=== PATIENT | male | born 1940 | race Caucasian/White ===

== ENCOUNTER → 2016-09-17 | Outpatient (CLI) | payer OTHER ==
[~2016-09-17] MED LIST: ASPCH81X PO; ATEN50TA8 PO; CMD2 PO; EZET10TA63 PO; LISI-729 PO; NTRGSL/4 UT; PRAV80TA2 PO
[2016-09-17 11:46] LABS: PROTHROMBIN TIME (PATIENT) > 100.0 SECONDS (9.0-12.0)
[2016-09-17 11:48] LABS: INR > 8.0 (0.9-1.1)
== END ==
LOC: C.LABSPEC 10:43
PROVIDERS: ATTEND Physician Assistant Medical
DX: Z79.01 Long term (current) use of anticoagulants (principal); Z51.81 Encounter for therapeutic drug level monitoring

== ENCOUNTER → 2016-11-03 | Outpatient (CLI) | payer OTHER ==
[2016-11-03 15:02] LABS: BASO % 0.2 %; BASO ABS # 0.01 K/uL (0-0.2); COMPLETE YES; EOS % 0.5 %; HEMATOCRIT 36.1 % (42-52); IG% 0.2 %; LYMPH % 10.3 %; LYMPH ABS # 0.63 K/uL (1.2-3.4); MEAN CELL VOLUME 99.2 fL (80-100); MEAN CORPUSCULAR HEMOGLOBIN 33.8 pg (25-34); MEAN CORPUSCULAR HGB CONC 34.1 g/dl (32-36); MEAN PLATELET VOLUME 10.1 fL (7.4-10.4); MONO % 8.2 %; NEUT % 80.6 %; PLATELET COUNT 175 K/uL (130-400); RED BLOOD COUNT 3.64 M/uL (4.7-6.1)
[2016-11-03 15:14] LABS: BLOOD UREA NITROGEN 28 mg/dl (7-18); BUN/CREATININE RATIO 28.8 (10-20); CALCIUM 7.9 mg/dl (8.5-10.1); CARBON DIOXIDE 29 mmol/L (21-32); CHLORIDE 108 mmol/L (98-107); CREATININE 0.96 mg/dl (0.60-1.40); GLUCOSE 116 mg/dl (70-99); POTASSIUM 5.3 mmol/L (3.5-5.1); SODIUM 141 mmol/L (136-145)
[2016-11-03 15:19] LABS: PROTHROMBIN TIME (PATIENT) > 100.0 SECONDS (9.0-12.0)
[2016-11-03 15:28] LABS: INR > 8.0 (0.9-1.1)
== END ==
LOC: C.LABSPEC 14:14
DX: R82.5 Elevated urine levels of drugs, medicaments and biological substances (principal); K92.1 Melena

== ENCOUNTER 2019-07-20 21:14 | Inpatient (IN) ==
--- NOTE | 2019-07-20 22:01 | XRay Report ---
SINGLE VIEW CHEST CLINICAL HISTORY: Sepsis. FINDINGS: An AP, portable, upright chest radiograph is compared to study dated 10/08/2018. The examina tion is degraded by portable technique and apical lordotic positioning. The heart is enlarged noting atherosclerotic calcification of the thoracic ureter. There is pulmonary vascular congestion. There a re small pleural effusions with bibasilar atelectasis. No pneumothorax is seen. The skeletal structur es are osteopenic. The bony thorax is grossly intact. IMPRESSION: Cardiomegaly with evidence of congestive failure. ACT 112: Negative or not required by law. Electronically signed by: Yan Valenzuela M.D. 07/20/2019 10:00 PM
[2019-07-20 22:07] LABS: Eosinophils # (auto) 0.01 K/uL (0-0.5); Eosinophils % (auto) 0.1 %; Hematocrit (blood only) 47.7 % (42-52); Hemoglobin 16.9 g/dL (14.0-18.0); Immature Granulocytes # (auto) 0.02 K/uL (0.00-0.02); Immature Granulocytes % (auto) 0.3 %; Lymphocytes # (auto) 0.36 K/uL (1.2-3.4); Lymphocytes % (auto) 4.9 %; Mean Corpuscular Hemoglobin 33.4 pg (25-34); Mean Corpuscular Hgb Conc 35.4 g/dL (32-36); Mean Corpuscular Volume 94.3 fL (80-100); Mean Platelet Volume 9.9 fL (7.4-10.4); Monocytes % (auto) 1.3 %; Neutrophils # (auto) 6.92 K/uL (1.4-6.5); Neutrophils % (auto) 93.4 %; Platelet Count 136 K/uL (130-400); RDW Coefficient of Variation 14.5 % (11.5-14.5); RDW Standard Deviation 49.3 fL (36.4-46.3); Red Blood Count 5.06 M/uL (4.7-6.1); White Blood Count 7.41 K/uL (4.8-10.8)
[2019-07-20 22:24] LABS: Alanine Aminotransferase 26 U/L (12-78); Aspartate Aminotransferase 21 U/L (15-37); BUN Creatinine Ratio 14.1 (10-20); Blood Urea Nitrogen 20 mg/dl (7-18); Calcium 8.7 mg/dl (8.5-10.1); Carbon Dioxide 27 mmol/L (21-32); Chloride 107 mmol/L (98-107); Creatinine Clr Calc Pharmacy 58.6 ml/min; Est GFR (African American) 54.3; Est GFR (Non-African American) 46.8; Glucose 132 mg/dl (70-99); Magnesium 2.1 mg/dl (1.8-2.4); Potassium 3.9 mmol/L (3.5-5.1); Sodium 141 mmol/L (136-145)
--- NOTE | 2019-07-20 22:24 | Emergency Department Note ---
Entered by Sonja Morales acting as a scribe for Frederick Booker DO History of Present Illness General Chief complaint: Leg Injury/Pain Time Seen by Provider: 07/20/19 21:32 Source: patient History of Present Illness Provider complaint: leg swelling Onset (ago): minute(s) (prior to arrival) Location: lower extremity and right Pain Consistency: + other (worsening) Quality: + other (leg swelling) Associated symptoms: + other (Negative pain; ) The patient is a 78 year old male who presents to the Emergency Room with complaints of leg pain that was observed prior to arrival. The patient's report claims that the patient has been experiencing right leg swelling and pain. The patient confirms that his right leg is more swollen than usual. The patient reports having blood clots in both of his legs. The patient denies any pain at this time. HPI is limited secondary to poor historian account. Home Medications Home Medications Medication Instructions Recorded Confirmed Type aripiprazole 5 mg PO DAILY 10/08/18 07/20/19 History aspirin [Aspirin Low Dose] 81 mg PO DAILY 10/08/18 07/20/19 History ezetimibe 10 mg PO DAILY 10/08/18 07/20/19 History hydroxyzine pamoate [Vistaril] 25 mg PO DAILY 10/08/18 07/20/19 History hydroxyzine pamoate [Vistaril] 50 mg PO HS 10/08/18 07/20/19 History memantine 10 mg PO BID 10/08/18 07/20/19 History nitroglycerin 0.4 mg SUBLINGUAL DIRECTED PRN 10/08/18 07/20/19 History pravastatin 80 mg PO HS 10/08/18 07/20/19 History ramelteon [Rozerem] 8 mg PO HS 10/08/18 07/20/19 History warfarin 2 mg PO HS 10/08/18 07/20/19 History acetaminophen 650 mg PO TID 07/20/19 07/20/19 History atenolol 12.5 mg PO DAILY 07/20/19 07/20/19 History docusate sodium 100 mg PO DAILY 07/20/19 07/20/19 History magnesium hydroxide [Milk of 30 ml PO DAILY PRN 07/20/19 07/20/19 History Magnesia] sodium chloride [[place] Allergy and 2.65 % INTRANASAL BID PRN 07/20/19 07/20/19 History Sinus] sulfamethoxazole-trimethoprim 1 tab PO BID 07/20/19 07/20/19 History [Bactrim DS] Allergies Allergy/AdvReac Type Severity Reaction Status Date / Time OC SPRAY AdvReac Unknown Unknown Uncoded 07/20/19 23:37 Past Med/Surg History Medical History 1st degree AV block Alzheimer disease Anemia Anxiety Atherosclerotic heart disease CORONARY ARTERY Atrial fibrillation DVT, lower extremity (Resolved) Hyperlipidemia Hypertension Intellectual disability Neurocognitive disorder Osteoarthritis Stented coronary artery (Chronic 04/17/11) Supratherapeutic INR (Acute) Transient ischemic attack (TIA) Surgical History History of cataract surgery Family History Other Family history non-contributory Social History Preferred Language: Singaporean Communication Ability: Impaired Compensation Director Required: No Beliefs That Will Affect Care: None marital status: Current Living Situation: Other Current Living Situation Comment: [facility] Feels Safe at Home: Yes Smoking Status: Unknown if ever smoked Hx Alcohol Use: No Hx Substance Use: No Physical Exam Vital Signs Vital Signs - 24 hr 07/20/19 21:17 07/20/19 21:30 07/20/19 21:59 Temperature 38.3 C H Temperature Source Oral Pulse Rate 112 H 109 H Pulse Rate [Apical] Pulse Rate from SpO2 Sensor 110 H Respiratory Rate 22 39 H Respiratory Effort / Characteristics Non-Labored Spontaneous Respiratory Depth Normal Respiratory Pattern Regular Blood Pressure 154/61 H 173/84 H Blood Pressure [Right Arm] Blood Pressure Mean 92 129 Blood Pressure Mean [Right Arm] Pulse Oximetry 94 92 94 Oxygen Delivery Method Room Air Room Air Sepsis Recent Fever Within 48 Hours Yes Sepsis New/Unexplained Change in Mental Status No Sepsis Action Taken by Nursing Physician Notified 07/20/19 22:01 07/20/19 22:15 07/20/19 22:31 Temperature Temperature Source Pulse Rate 119 H 123 H 114 H Pulse Rate [Apical] Pulse Rate from SpO2 Sensor 119 H 125 H 114 H Respiratory Rate 38 H 41 H 34 H Respiratory Effort / Characteristics Respiratory Depth Respiratory Pattern Blood Pressure 167/78 H 157/77 H 140/66 Blood Pressure [Right Arm] Blood Pressure Mean 110 100 83 Blood Pressure Mean [Right Arm] Pulse Oximetry 93 92 92 Oxygen Delivery Method Room Air Sepsis Recent Fever Within 48 Hours Sepsis New/Unexplained Change in Mental Status Sepsis Action Taken by Nursing 07/20/19 23:00 07/21/19 00:18 Temperature Temperature Source Pulse Rate Pulse Rate [Apical] 105 H 88 Pulse Rate from SpO2 Sensor Respiratory Rate 18 18 Respiratory Effort / Characteristics Respiratory Depth Respiratory Pattern Blood Pressure Blood Pressure [Right Arm] 122/70 99/60 L Blood Pressure Mean Blood Pressure Mean [Right Arm] 87 73 Pulse Oximetry 92 92 Oxygen Delivery Method Room Air Room Air Sepsis Recent Fever Within 48 Hours Sepsis New/Unexplained Change in Mental Status Sepsis Action Taken by Nursing GENERAL: The patient is awake and alert. He is somewhat anxious appearing. EYES: The conjunctivae are clear. The pupils are round and reactive. EARS, NOSE, MOUTH AND THROAT: The nose is without any evidence of any deformity. Mucous membranes are moist. Tongue is midline. NECK: The neck is nontender and supple. RESPIRATORY: Shallow respirations were noted. There were rales noted at the left base. CARDIOVASCULAR: Regular rate and rhythm noted there no murmurs rubs or gallops normal S1 normal S2. GASTROINTESTINAL: The abdomen is soft. Abdomen is nontender. MUSCULOSKELETAL/EXTREMITIES: There is no evidence of gross deformity full range of motion is noted in the hips and shoulders. SKIN: Pedal edema was noted bilaterally. There was symmetric pulses in both feet. There is erythema in both lower extremities right greater than left. NEUROLOGIC: Patient is oriented to person place and situation. Strength was symmetric. Course Course 2133: Past medical records reviewed. The patient was evaluated in room A10. A complete history and physical exam was performed. 0030: I reassessed the patient who is resting. I talked to him about his further evaluation with a hospitalist. 0032: I reviewed the patient's case with Dr. Heller, [facility] Hospitalist. He will evaluate the patient for further management. Consultations Consultation #1: I reviewed the patient's case with Dr. Heller, [facility] Hospitalist. He will evaluate the patient for further management. Time: 00:32 Administered Medications Sodium Chloride (Nss 1000ml) 1,000 mls @ 125 mls/hr IV .Q8H PRISCA Stop: 08/20/19 02:00 Last Admin: 07/21/19 02:33 Dose: 125 mls/hr Documented by: [id number] Discontinued Medications Piperacillin Sod/Tazobactam Sod (Zosyn) 4.5 gm in 120 mls @ 240 mls/hr IV NOW ONE Stop: 07/20/19 22:59 Last Infusion: 07/20/19 23:16 Dose: 0 mls/hr Documented by: [id number] Admin: 07/20/19 22:46 Dose: 240 mls/hr Documented by: [id number] Ceftriaxone Sodium (Rocephin) 1,000 mg in 50 mls @ 100 mls/hr IV NOW STA Stop: 07/21/19 00:51 Last Infusion: 07/21/19 01:10 Dose: 0 mls/hr Documented by: [id number] Admin: 07/21/19 00:33 Dose: 100 mls/hr Documented by: [id number] Sodium Chloride (Nss 1000ml) 500 mls @ 999 mls/hr IV .Q31M ONE Stop: 07/21/19 00:54 Last Infusion: 07/21/19 01:09 Dose: 0 mls/hr Documented by: [id number] Admin: 07/21/19 00:33 Dose: 999 mls/hr Documented by: [id number] Ioversol (Optiray 320 125ml) 117 ml IV ONCE PRN PRN Reason: Interaction Checking Stop: 07/24/19 23:12 Last Admin: 07/20/19 23:14 Dose: 117 ml Documented by: [id number] Medical Decision Making Differential Diagnosis Differential diagnosis includes etiologies such as cellulitis, abscess, MRSA infection, DVT, necrotizing fasciitis, dermatitis, drug eruption, as well as others were entertained. Medical Records Attestation: I reviewed the patient's medical records. Home Medications Current Medication List: was personally reviewed by me Laboratory Data Attestation: I reviewed the patient's lab results. Result diagrams: 07/20/19 21:55 07/20/19 21:55 Lab Results 07/20/19 07/20/19 07/20/19 Range/Units 21:40 21:55 21:55 WBC 7.41 (4.8-10.8) K/uL RBC 5.06 (4.7-6.1) M/uL Hgb 16.9 (14.0-18.0) g/dL Hct 47.7 (42-52) % MCV 94.3 (80-100) fL MCH 33.4 (25-34) pg MCHC 35.4 (32-36) g/dL RDW Std Deviation 49.3 H (36.4-46.3) fL RDW Coeff of Tamara 14.5 (11.5-14.5) % Plt Count 136 (130-400) K/uL MPV 9.9 (7.4-10.4) fL Immature Gran % (Auto) 0.3 % Neut % (Auto) 93.4 % Lymph % (Auto) 4.9 % Baxter % (Auto) 1.3 % Eos % (Auto) 0.1 % Baso % (Auto) 0.0 % Immature Gran # (Auto) 0.02 (0.00-0.02) K/uL Neut # (Auto) 6.92 H (1.4-6.5) K/uL Lymph # (Auto) 0.36 L (1.2-3.4) K/uL Baxter # (Auto) 0.10 L (0.11-0.59) K/uL Eos # (Auto) 0.01 (0-0.5) K/uL Baso # (Auto) 0.00 (0-0.2) K/uL PT (9.0-12.0) Seconds INR (0.9-1.1) APTT (21.0-31.0) Seconds PTT Ratio Sodium (136-145) mmol/L Potassium (3.5-5.1) mmol/L Chloride (98-107) mmol/L Carbon Dioxide (21-32) mmol/L Anion Gap (3-11) BUN (7-18) mg/dl Creatinine (0.6-1.4) mg/dl Est Cr Clr Drug Dosing ml/min Est GFR ( Amer) Est GFR (Non-Af Amer) BUN/Creatinine Ratio (10-20) Glucose (70-99) mg/dl Lactate (0.4-2.0) mmol/L Calcium (8.5-10.1) mg/dl Magnesium (1.8-2.4) mg/dl Total Bilirubin (0.2-1) mg/dl AST (15-37) U/L ALT (12-78) U/L Alkaline Phosphatase (45-117) U/L Troponin I (0-0.045) ng/ml Total Protein (6.4-8.2) gm/dl Albumin (3.4-5.0) gm/dl Globulin (2.5-4.0) gm/dl Albumin/Globulin Ratio (0.9-2) Procalcitonin 0.17 (0-0.5) ng/ml Urine Color Urine Appearance (Clear) Urine pH (4.5-7.5) Ur Specific [place] (1.000-1.030) Urine Protein (Negative) Urine Glucose (UA) (Negative) Urine Ketones (Negative) Urine Blood (Negative) Urine Nitrite (Negative) Urine Bilirubin (Negative) Urine Urobilinogen (Negative) Ur Leukocyte Esterase (Negative) Urine WBC (Auto) (0-5) /hpf Urine RBC (Auto) (0-4) /hpf U Hyaline Cast (Auto) (0-5) /lpf U Epithel Cells (Auto) (0-5) /lpf Urine Bacteria (Auto) (Negative) Influenza Type A (PCR) Neg for Influ A (Neg) Influenza Type B (PCR) Neg for Influ B (Neg) 07/20/19 07/20/19 07/20/19 Range/Units 21:55 21:55 21:55 WBC (4.8-10.8) K/uL RBC (4.7-6.1) M/uL Hgb (14.0-18.0) g/dL Hct (42-52) % MCV (80-100) fL MCH (25-34) pg MCHC (32-36) g/dL RDW Std Deviation (36.4-46.3) fL RDW Coeff of Tamara (11.5-14.5) % Plt Count (130-400) K/uL MPV (7.4-10.4) fL Immature Gran % (Auto) % Neut % (Auto) % Lymph % (Auto) % [place] % (Auto) % Eos % (Auto) % Baso % (Auto) % Immature Gran # (Auto) (0.00-0.02) K/uL Neut # (Auto) (1.4-6.5) K/uL Lymph # (Auto) (1.2-3.4) K/uL [place] # (Auto) (0.11-0.59) K/uL Eos # (Auto) (0-0.5) K/uL Baso # (Auto) (0-0.2) K/uL PT 36.7 H (9.0-12.0) Seconds INR 3.9 H (0.9-1.1) APTT 38.4 H (21.0-31.0) Seconds PTT Ratio 1.4 Sodium 141 (136-145) mmol/L Potassium 3.9 (3.5-5.1) mmol/L Chloride 107 (98-107) mmol/L Carbon Dioxide 27 (21-32) mmol/L Anion Gap 6.0 (3-11) BUN 20 H (7-18) mg/dl Creatinine 1.44 H (0.6-1.4) mg/dl Est Cr Clr Drug Dosing 58.6 ml/min Est GFR ( Amer) 54.3 Est GFR (Non-Af Amer) 46.8 BUN/Creatinine Ratio 14.1 (10-20) Glucose 132 H (70-99) mg/dl Lactate 3.0 H* (0.4-2.0) mmol/L Calcium 8.7 (8.5-10.1) mg/dl Magnesium 2.1 (1.8-2.4) mg/dl Total Bilirubin 0.7 (0.2-1) mg/dl AST 21 (15-37) U/L ALT 26 (12-78) U/L Alkaline Phosphatase 87 (45-117) U/L Troponin I < 0.015 (0-0.045) ng/ml Total Protein 8.6 H (6.4-8.2) gm/dl Albumin 4.0 (3.4-5.0) gm/dl Globulin 4.6 H (2.5-4.0) gm/dl Albumin/Globulin Ratio 0.9 (0.9-2) Procalcitonin (0-0.5) ng/ml Urine Color Urine Appearance (Clear) Urine pH (4.5-7.5) Ur Specific [place] (1.000-1.030) Urine Protein (Negative) Urine Glucose (UA) (Negative) Urine Ketones (Negative) Urine Blood (Negative) Urine Nitrite (Negative) Urine Bilirubin (Negative) Urine Urobilinogen (Negative) Ur Leukocyte Esterase (Negative) Urine WBC (Auto) (0-5) /hpf Urine RBC (Auto) (0-4) /hpf U Hyaline Cast (Auto) (0-5) /lpf U Epithel Cells (Auto) (0-5) /lpf Urine Bacteria (Auto) (Negative) Influenza Type A (PCR) (Neg) Influenza Type B (PCR) (Neg) 07/20/19 07/20/19 Range/Units 22:26 23:46 WBC (4.8-10.8) K/uL RBC (4.7-6.1) M/uL Hgb (14.0-18.0) g/dL Hct (42-52) % MCV (80-100) fL MCH (25-34) pg MCHC (32-36) g/dL RDW Std Deviation (36.4-46.3) fL RDW Coeff of Tamara (11.5-14.5) % Plt Count (130-400) K/uL MPV (7.4-10.4) fL Immature Gran % (Auto) % Neut % (Auto) % Lymph % (Auto) % Baxter % (Auto) % Eos % (Auto) % Baso % (Auto) % Immature Gran # (Auto) (0.00-0.02) K/uL Neut # (Auto) (1.4-6.5) K/uL Lymph # (Auto) (1.2-3.4) K/uL [place] # (Auto) (0.11-0.59) K/uL Eos # (Auto) (0-0.5) K/uL Baso # (Auto) (0-0.2) K/uL PT (9.0-12.0) Seconds INR (0.9-1.1) APTT (21.0-31.0) Seconds PTT Ratio Sodium (136-145) mmol/L Potassium (3.5-5.1) mmol/L Chloride (98-107) mmol/L Carbon Dioxide (21-32) mmol/L Anion Gap (3-11) BUN (7-18) mg/dl Creatinine (0.6-1.4) mg/dl Est Cr Clr Drug Dosing ml/min Est GFR ( Amer) Est GFR (Non-Af Amer) BUN/Creatinine Ratio (10-20) Glucose (70-99) mg/dl Lactate 3.5 H* (0.4-2.0) mmol/L Calcium (8.5-10.1) mg/dl Magnesium (1.8-2.4) mg/dl Total Bilirubin (0.2-1) mg/dl AST (15-37) U/L ALT (12-78) U/L Alkaline Phosphatase (45-117) U/L Troponin I (0-0.045) ng/ml Total Protein (6.4-8.2) gm/dl Albumin (3.4-5.0) gm/dl Globulin (2.5-4.0) gm/dl Albumin/Globulin Ratio (0.9-2) Procalcitonin (0-0.5) ng/ml Urine Color Yellow Urine Appearance Clear (Clear) Urine pH 6.5 (4.5-7.5) Ur Specific [place] 1.011 (1.000-1.030) Urine Protein Negative (Negative) Urine Glucose (UA) Negative (Negative) Urine Ketones Negative (Negative) Urine Blood Trace H (Negative) Urine Nitrite Negative (Negative) Urine Bilirubin Negative (Negative) Urine Urobilinogen Negative (Negative) Ur Leukocyte Esterase Negative (Negative) Urine WBC (Auto) 0 (0-5) /hpf Urine RBC (Auto) 0-4 (0-4) /hpf U Hyaline Cast (Auto) 0 (0-5) /lpf U Epithel Cells (Auto) 0-5 (0-5) /lpf Urine Bacteria (Auto) Negative (Negative) Influenza Type A (PCR) (Neg) Influenza Type B (PCR) (Neg) Imaging Data Radiologist's Impression: CT of the chest was obtained in the emergency department. The report was reviewed. Preliminary Findings Only See Final Report For Complete Findings CTA CHEST: Thoracic inlet, bilateral axilla are unremarkable. Negative for any significant mediastinal hilar or subcarinal lymphadenopathy. Small hiatal hernia. Cirrhotic appearance to the liver. Heart and pericardium are unremarkable. Mild calcification at the aortic root and atherosclerotic calcifications in the aortic arch. Mild plaque ulceration noted involving the descending thoracic aorta. Caliber of the aorta and pulmonary arteries are normal. Negative for any filling defects. Stent or calcification at the origin of the left subclavian artery. Lungs: Mild bilateral basilar atelectasis. Bones: Old left posterior lower rib fracture. Impression: 1. No acute chest findings. 2. Cirrhotic liver. 3. Atherosclerotic disease with some mild plaque ulceration involving the descending thoracic aorta. Radiologist: Vinicio Cunningham MD Study ready at 23:25 and initial results transmitted at 00:19 ECG Data Attestation: I personally reviewed and interpreted this ECG as follows: Indication: + altered mental status Rate (beats per minute): 108 Rhythm: + sinus tachycardia ECG ST segments: + ST depression ECG Findings: + Other (No ectopy; Increased rate) Comparison ECG Date: from (10/08/2018) Change: no significant change Blood Pressure Blood Pressure Findings: Normal blood pressure MDM Narrative The patient is a 78-year-old male who presented to the emergency department from the [place] [facility] for an evaluation of fever and leg swelling. The patient also had some difficulty breathing. The patient appears to have an exam consistent with cellulitis. CT of the chest did not reveal any signs of pulmonary venous thromboembolic disease. I discussed the patient's laboratory and radiographic studies with him as well as the guards. The patient at this time does appear to have significant cellulitis of the right lower extremity. He was started on antibiotics. I discussed his case with the on-call [facility] hospitalist group. They have agreed to evaluate the patient in the emergency department for further management and disposition. Impression & Plan Cellulitis of right lower extremity, Fever, Hypertension Discharge Plan Visit Data *Final* Discharge Date/Time: 07/21/19 01:33 Chief Complaint: Leg Injury/Pain ED Provider: Frederick Booker Discharge Problem: Cellulitis of right lower extremity, Fever, Hypertension Patient Disposition: Admitted As Inpatient Discharge Instructions Interventions: ED Discharge Assessment Last Done: 07/21/19 01:33 Discharge Problem: Fever Qualifiers: Fever type: unspecified Qualified Code(s): R50.9 - Fever, unspecified Hypertension Qualifiers: Hypertension type: unspecified Qualified Code(s): I10 - Essential (primary) hypertension The scribe's documentation has been prepared under my direction and personally reviewed by me in its entirety. I confirm that the note above accurately reflects all work, treatment, procedures, and medical decision making performed by me.
[2019-07-20 22:27] LABS: Influenza A virus by PCR Neg for Influ A (Neg); Influenza B virus by PCR Neg for Influ B (Neg)
[2019-07-20 22:28] LABS: Partial Thromboplastin Ratio 1.4; Partial Thromboplastin Time 38.4 Seconds (21.0-31.0); Prothrombin Time 36.7 Seconds (9.0-12.0)
[2019-07-20 22:29] LABS: Albumin Globulin Ratio 0.9 (0.9-2); Alkaline Phosphatase 87 U/L (45-117); Bilirubin,Total 0.7 mg/dl (0.2-1); Globulin 4.6 gm/dl (2.5-4.0); Total Protein 8.6 gm/dl (6.4-8.2); Troponin I < 0.015 ng/ml (0-0.045)
[2019-07-20] MEDS ORDERED: PIPERACILLIN/TAZOBACTAM 4.5 GM/120 ML BAG IV ONE (22:30)
[2019-07-20] MEDS ORDERED: PIPERACILL/TAZOBAC CONSULT ACTIVE PRN (22:30)
[2019-07-20 22:48] LABS: INR 3.9 (0.9-1.1)
[2019-07-20 22:56] LABS: Appearance Urine Clear (Clear); Bacteria Urine Automated Negative (Negative); Bilirubin Urine Negative (Negative); Blood Urine Trace (Negative); Cast Urine Automated 0 /lpf (0-5); Color Urine Yellow; Epithelial Cell Urine Auto 0-5 /lpf (0-5); Glucose Urine UA Negative (Negative); Ketones Urine Negative (Negative); Leukocyte Esterase Urine Negative (Negative); Nitrite Urine Negative (Negative); Protein Urine Negative (Negative); RBC Urine Automated 0-4 /hpf (0-4); Specific Gravity Urine 1.011 (1.000-1.030); Urobilinogen Urine Negative (Negative); WBC Urine Automated 0 /hpf (0-5); pH Urine 6.5 (4.5-7.5)
[2019-07-20] MEDS ORDERED: OPTIRAY 320 125ml IV PRN (23:13)
[2019-07-21] MEDS ORDERED: cefTRIAXone SODIUM 1,000 MG/50 ML BAG IV STA (00:22)
[2019-07-21] MEDS ORDERED: SODIUM CHLORIDE 0.9% 1000ML 500 ML IV ONE (00:24)
--- NOTE | 2019-07-21 00:51 | History & Physical Report ---
Date of Service July 21, 2019 Assessment & Plan (1) Sepsis: Admit to PCU Evidenced by T 38.3, RR 41, Lactate level 3.5, source of infection cellulitis R lower leg. (2) Cellulitis of right lower extremity: IV Rocephin and IV Vanco MRSA nasal swab ordered. If negative can D/C Vanco. 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 Therefore will check INR in am and make decision tomorrow if to hold Warfarin (4) Alzheimer disease: Continue memantine. Continue behavioral meds aripiprazole and Vistaril. (5) Atherosclerotic heart disease: Continue aspirin, atenolol, and prn NTG (6) Hyperlipidemia: Continue ezetimibe and pravastatin. History of Present Illness 78 y/o male with dementia presented to the ED with complaint of right lower extremity pain and erythema. He awakens to verbal, but is not communicating or answering questions. The senior living guards report that the patient communicates intermittently as a baseline, however today he has been much less verbal. He did have temp elevation to 101F at the senior living today. Primary Care Provider: AUBREE Francis Allergies Allergy/AdvReac Type Severity Reaction Status Date / Time OC SPRAY AdvReac Unknown Unknown Uncoded 07/20/19 23:37 Home Medications Home Medications Medication Instructions Recorded Confirmed Type aripiprazole 5 mg PO DAILY 10/08/18 07/20/19 History aspirin [Aspirin Low Dose] 81 mg PO DAILY 10/08/18 07/20/19 History ezetimibe 10 mg PO DAILY 10/08/18 07/20/19 History hydroxyzine pamoate [Vistaril] 25 mg PO DAILY 10/08/18 07/20/19 History hydroxyzine pamoate [Vistaril] 50 mg PO HS 10/08/18 07/20/19 History memantine 10 mg PO BID 10/08/18 07/20/19 History nitroglycerin 0.4 mg SUBLINGUAL DIRECTED PRN 10/08/18 07/20/19 History pravastatin 80 mg PO HS 10/08/18 07/20/19 History ramelteon [Rozerem] 8 mg PO HS 10/08/18 07/20/19 History warfarin 2 mg PO HS 10/08/18 07/20/19 History acetaminophen 650 mg PO TID 07/20/19 07/20/19 History atenolol 12.5 mg PO DAILY 07/20/19 07/20/19 History docusate sodium 100 mg PO DAILY 07/20/19 07/20/19 History magnesium hydroxide [Milk of 30 ml PO DAILY PRN 07/20/19 07/20/19 History Magnesia] sodium chloride [[place] Allergy and 2.65 % INTRANASAL BID PRN 07/20/19 07/20/19 History Sinus] sulfamethoxazole-trimethoprim 1 tab PO BID 07/20/19 07/20/19 History [Bactrim DS] Past Med/Surg History Medical History 1st degree AV block Alzheimer disease Anemia Anxiety Atherosclerotic heart disease CORONARY ARTERY Atrial fibrillation DVT, lower extremity (Resolved) Hyperlipidemia Hypertension Intellectual disability Neurocognitive disorder Osteoarthritis Stented coronary artery (Chronic 04/17/11) Supratherapeutic INR (Acute) Transient ischemic attack (TIA) Surgical History History of cataract surgery Family History Other Family history non-contributory Social History Preferred Language: Filipino marital status: Current Living Situation: Other Current Living Situation Comment: Prisoner Feels Safe at Home: Yes Smoking Status: Former smoker Hx Alcohol Use: No Hx Substance Use: No Review of Systems Review of Systems: Unobtainable due to cognitive status Physical Exam Physical Exam: General- adult male awakens to verbal, makes eye contact, but not verbalizing. Head- atraumatic Eyes- PERRL, EOMI, anicteric ENT- oropharynx clear Neck- supple, no JVD, no adenopathy, no thyromegaly. Lungs- CTA b/l no R/R/W Heart- regular rhythm; no murmur, no gallop, no rub appreciated Abdomen- normal bowel sounds, soft, nontender. Extremities- Non-pitting edema right leg with erythema from ankle to mid lower leg, + tenderness to touch with heat production. Left leg shows mild edema and less erythema when compared to right. Neuro- alert, orientation not able to assess; PERRL, EOMI; Non-focal. die designer II-XII grossly intact. Skin- See ext. exam. No rashes. Results & Data Vital Signs (Past 12 Hours) Vital Signs Temp Pulse Pulse Resp BP BP Pulse Ox 07/21/19 00:18 88 18 99/60 L 92 07/20/19 23:00 105 H 18 122/70 92 07/20/19 22:31 114 H 34 H 140/66 92 07/20/19 22:15 123 H 41 H 157/77 H 92 07/20/19 22:01 119 H 38 H 167/78 H 93 07/20/19 21:59 94 07/20/19 21:30 109 H 39 H 173/84 H 92 07/20/19 21:17 38.3 C H 112 H 22 154/61 H 94 Laboratory Results Laboratory Results WBC 7.41 K/uL (4.8-10.8) 07/20/19 21:55 RBC 5.06 M/uL (4.7-6.1) 07/20/19 21:55 Hgb 16.9 g/dL (14.0-18.0) 07/20/19 21:55 Hct 47.7 % (42-52) 07/20/19 21:55 MCV 94.3 fL (80-100) 07/20/19 21:55 MCH 33.4 pg (25-34) 07/20/19 21:55 MCHC 35.4 g/dL (32-36) 07/20/19 21:55 RDW Std Deviation 49.3 fL (36.4-46.3) H 07/20/19 21:55 RDW Coeff of Tamara 14.5 % (11.5-14.5) 07/20/19 21:55 Plt Count 136 K/uL (130-400) 07/20/19 21:55 MPV 9.9 fL (7.4-10.4) 07/20/19 21:55 Immature Gran % (Auto) 0.3 % 07/20/19 21:55 Neut % (Auto) 93.4 % 07/20/19 21:55 Lymph % (Auto) 4.9 % 07/20/19 21:55 [place] % (Auto) 1.3 % 07/20/19 21:55 Eos % (Auto) 0.1 % 07/20/19 21:55 Baso % (Auto) 0.0 % 07/20/19 21:55 Immature Gran # (Auto) 0.02 K/uL (0.00-0.02) 07/20/19 21:55 Neut # (Auto) 6.92 K/uL (1.4-6.5) H 07/20/19 21:55 Lymph # (Auto) 0.36 K/uL (1.2-3.4) L 07/20/19 21:55 [place] # (Auto) 0.10 K/uL (0.11-0.59) L 07/20/19 21:55 Eos # (Auto) 0.01 K/uL (0-0.5) 07/20/19 21: Baso # (Auto) 0.00 K/uL (0-0.2) 07/20/19 21:55 PT 36.7 Seconds (9.0-12.0) H 07/20/19 21:55 INR 3.9 (0.9-1.1) H 07/20/19 21:55 APTT 38.4 Seconds (21.0-31.0) H 07/20/19 21:55 PTT Ratio 1.4 07/20/19 21:55 Sodium 141 mmol/L (136-145) 07/20/19 21:55 Potassium 3.9 mmol/L (3.5-5.1) 07/20/19 21:55 Chloride 107 mmol/L (98-107) 07/20/19 21:55 Carbon Dioxide 27 mmol/L (21-32) 07/20/19 21:55 Anion Gap 6.0 (3-11) 07/20/19 21:55 BUN 20 mg/dl (7-18) H 07/20/19 21:55 Creatinine 1.44 mg/dl (0.6-1.4) H 07/20/19 21:55 Est Cr Clr Drug Dosing 58.6 ml/min 07/20/19 21:55 Est GFR ( Amer) 54.3 07/20/19 21:55 Est GFR (Non-Af Amer) 46.8 07/20/19 21:55 BUN/Creatinine Ratio 14.1 (10-20) 07/20/19 21:55 Glucose 132 mg/dl (70-99) H 07/20/19 21:55 Lactate 3.5 mmol/L (0.4-2.0) H* 07/20/19 23:46 Calcium 8.7 mg/dl (8.5-10.1) 07/20/19 21:55 Magnesium 2.1 mg/dl (1.8-2.4) 07/20/19 21:55 Total Bilirubin 0.7 mg/dl (0.2-1) 07/20/19 21:55 AST 21 U/L (15-37) 07/20/19 21:55 ALT 26 U/L (12-78) 07/20/19 21:55 Alkaline Phosphatase 87 U/L (45-117) 07/20/19 21:55 Troponin I < 0.015 ng/ml (0-0.045) 07/20/19 21:55 Total Protein 8.6 gm/dl (6.4-8.2) H 07/20/19 21:55 Albumin 4.0 gm/dl (3.4-5.0) 07/20/19 21:55 Globulin 4.6 gm/dl (2.5-4.0) H 07/20/19 21:55 Albumin/Globulin Ratio 0.9 (0.9-2) 07/20/19 21:55 Procalcitonin 0.17 ng/ml (0-0.5) 07/20/19 21:55 Urine Color Yellow 07/20/19 22:26 Urine Appearance Clear (Clear) 07/20/19 22:26 Urine pH 6.5 (4.5-7.5) 07/20/19 22:26 Ur Specific Russell 1.011 (1.000-1.030) 07/20/19 22:26 Urine Protein Negative (Negative) 07/20/19 22: Urine Glucose (UA) Negative (Negative) 07/20/19 22: Urine Ketones Negative (Negative) 07/20/19 22:26 Urine Blood Trace (Negative) H 07/20/19 22:26 Urine Nitrite Negative (Negative) 07/20/19 22: Urine Bilirubin Negative (Negative) 07/20/19 22:26 Urine Urobilinogen Negative (Negative) 07/20/19 22:26 Ur Leukocyte Esterase Negative (Negative) 07/20/19 22:26 Urine WBC (Auto) 0 /hpf (0-5) 07/20/19 22:26 Urine RBC (Auto) 0-4 /hpf (0-4) 07/20/19 22:26 U Hyaline Cast (Auto) 0 /lpf (0-5) 07/20/19 22:26 U Epithel Cells (Auto) 0-5 /lpf (0-5) 07/20/19 22:26 Urine Bacteria (Auto) Negative (Negative) 07/20/19 22:26 Influenza Type A (PCR) Neg for Influ A (Neg) 07/20/19 21:40 Influenza Type B (PCR) Neg for Influ B (Neg) 07/20/19 21:40 Diagnostic Findings [place] [phone] XRay Report Patient: PHILIPPE HOOPER [id number] Date: 07/20/19 MR#: [id number]: AUBREE [facility] Acct ID:[id number]: JEFF Ivy Date: 1940[facility] Zip: [place] [address] Age: 78Location: ED Sex: M Room/Bed: Att Phy:Diagnosis: UNKNOWN Priyanka [facility] 07/20[facility] Fam Phy:Interpreting Phy: Yan Valenzuela MD Admit Phy: Ordering Phy: Frederick Booker DO cc: ~ SINGLE VIEW CHEST CLINICAL HISTORY: Sepsis. FINDINGS: An AP, portable, upright chest radiograph is compared to study dated 10/08/2018. The examination is degraded by portable technique and apical lordotic positioning. The heart is enlarged noting atherosclerotic calcification of the thoracic ureter. There is pulmonary vascular congestion. There are small pleural effusions with bibasilar atelectasis. No pneumothorax is seen. The skeletal structures are osteopenic. The bony thorax is grossly intact. IMPRESSION: Cardiomegaly with evidence of congestive failure. ACT 112: Negative or not required by law. Electronically signed by: Yan Valenzuela M.D. 07/20/2019 10:00 PM Dictated: [id number] Transcribed: 07/20/192158 Code Status & VTE Plan VTE Prophylaxis Plan VTE Prophylaxis will be ordered: Yes PG Care Time/CCT Total # of Minutes Spent Total Time Spent: 55 Total Time Spent with Patient: Total time spent is greater than 50% in coordination of care (as documented) at patient's floor/unit and/or counseling patient: Coding Level of Care Code 96097 Initial Inpt Care Lvl 3 Diagnoses Sepsis A41.9 Cellulitis of right lower extremity L03.115 DVT, lower extremity I82.409 Alzheimer disease G30.9; F02.80 Atherosclerotic heart disease I25.10 Hyperlipidemia E78.5
[2019-07-21] MEDS ORDERED: VANCOMYCIN CONSULT ACTIVE PRN (02:01)
[2019-07-21] MEDS ORDERED: NITROGLYCERIN SL 0.4 MG/TAB TAB SL PRN (02:01)
[2019-07-21] MEDS ORDERED: ONDANSETRON INJ 2 MG/ML 2 ML VIAL IV PRN (02:01)
[2019-07-21] MEDS ORDERED: PNEUMOCOCCAL POLYSACCHARIDES 25 MCG/0.5 ML VIAL/SYR IM ONE (02:14)
[2019-07-21] MEDS ORDERED: PNEUMOCOCCAL ADMINISTRATION CHARGE ONE (02:14)
[2019-07-21] MEDS ORDERED: VANCOMYCIN HCL 2,500 MG in SODIUM CHLORIDE 0.9% 500 ML IV ONE (02:30)
[2019-07-21] MEDS: SODIUM CHLORIDE 0.9% 1000ML 1,000 ML IV SCH ×3 (02:33→18:55)
[2019-07-21 05:50] LABS: Hematocrit (blood only) 43.4 % (42-52); Hemoglobin 14.9 g/dL (14.0-18.0); Mean Corpuscular Hemoglobin 32.3 pg (25-34); Mean Corpuscular Hgb Conc 34.3 g/dL (32-36); Mean Corpuscular Volume 93.9 fL (80-100); Mean Platelet Volume 9.7 fL (7.4-10.4); Platelet Count 110 K/uL (130-400); RDW Coefficient of Variation 14.6 % (11.5-14.5); RDW Standard Deviation 49.2 fL (36.4-46.3); Red Blood Count 4.62 M/uL (4.7-6.1)
[2019-07-21 06:12] LABS: Prothrombin Time 35.2 Seconds (9.0-12.0)
[2019-07-21 06:22] LABS: INR 3.8 (0.9-1.1)
[2019-07-21 06:27] LABS: Calcium 8.3 mg/dl (8.5-10.1); Creatinine Clr Calc Pharmacy 56.4 ml/min; Est GFR (African American) 53.4; Est GFR (Non-African American) 46.1; Potassium 3.3 mmol/L (3.5-5.1)
--- NOTE | 2019-07-21 07:33 | CT Scan Report ---
CT ANGIOGRAPHY OF THE CHEST, PULMONARY EMBOLUS PROTOCOL CLINICAL HISTORY: Chest pain. Evaluate for pulmonary embolus. COMPARISON STUDY: Chest radiograph October 08, 2018 and July 20, 2019. TECHNIQUE: Following IV administration of 117 mL of Optiray-320, helical axial images of the chest we re obtained utilizing the pulmonary embolus protocol. Maximal intensity projections and sagittal and coronal reformats were viewed on an independent 3D workstation. IV contrast was administered withou t complication. Automated exposure control was utilized for the study. A dose lowering technique wa s utilized adhering to the principles of ALARA. CT DOSE: 675.60 mGycm FINDINGS: No pulmonary emboli are identified although this exam is mildly compromised by respiratory motion. The heart is mildly enlarged. There is no pericardial effusion. There is moderate plaque wit hin the thoracic aorta without dissection. No pneumothorax is noted. There is no consolidation to sug gest pneumonia. Bilateral lower lobe opacities favor atelectasis. There are trace bilateral pleural e ffusions versus mild pleural thickening. Central airways are patent. No pneumomediastinum is present. There is no thoracic lymphadenopathy. Old bilateral rib fractures are noted. Liver is cirrhotic. IMPRESSION: 1. No pulmonary emboli identified although exam mildly compromised by respiratory motion. 2. No acute findings within the chest. 3. Trace bilateral pleural effusions versus pleural thickening. Bilateral lower lobe atelectasis with no consolidation to suggest pneumonia. 4. Cirrhosis. ACT 112: Negative or not required by law. Electronically signed by: Pramod Peraza M.D. 07/21/2019 7:32 AM
[2019-07-21] MEDS: ATENOLOL 25 MG TABLET PO SCH (07:59)
[2019-07-21] MEDS: ASPIRIN 81 MG ECTAB PO SCH (07:59)
[2019-07-21] MEDS: EZETIMIBE 10 MG TABLET PO SCH (07:59)
[2019-07-21] MEDS: MEMANTINE HCL 10 MG TAB PO SCH ×2 (07:59→19:57)
[2019-07-21] MEDS: PANTOprazole 40 MG TAB PO SCH (07:59)
[2019-07-21] MEDS: ARIPiprazole 5 MG TAB PO SCH (07:59)
[2019-07-21] MEDS: DOCUSATE SODIUM 100 MG CAP PO SCH (07:59)
[2019-07-21] MEDS ORDERED: POTASSIUM CHLORIDE 20 MEQ TABCR PO ONE (08:35)
--- NOTE | 2019-07-21 10:03 | Pharmacy Report ---
Pharmacy Abx Dose Short Note - Date of Service July 21, 2019 - Assessment & Plan Assessment * 78 year old M receiving ceftriaxone and vancomycin for treatment of sepsis 2nd RLE cellulitis * ?[facility] - no mention of CKD in H&P but SCr elevated to 1.44 mg/dL on admission and stable at 1.46 mg/dL ~7 hours later. Baseline from September 2018 ~1.1 mg/dL Vancomycin * Vancomcyin 22.5 mg/kg administered this AM * Will dose by level for now 2nd unclear renal function * Random level later today Plan * Random level ~12 hours after loading dose. * If therapeutic or subtherapeutic, anticipate ability to schedule vancomycin ongoing. * If supratherapeutic, will continue to dose via level. Pharmacy will continue to follow and will adjust dose/frequency as necessary. Thank you.
[2019-07-21] MEDS: ACETAMINOPHEN 325 MG TAB PO PRN (11:53)
--- NOTE | 2019-07-21 12:58 | Electrocardiogram Report ---
Test Reason : Blood Pressure : / mmHG Vent. Rate : 108 BPM Atrial Rate : 108 BPM P-R Int : 204 ms QRS Dur : 092 ms QT Int : 334 ms P-R-T Axes : 116 -75 054 degrees QTc Int : 447 ms Poor data quality, interpretation may be adversely affected Sinus tachycardia with 1st degree A-V block Incomplete right bundle branch block Left anterior fascicular block Nonspecific ST abnormality Abnormal ECG When compared with ECG of 08-OCT-2018 10:32, TX interval has decreased Vent. rate has increased BY 51 BPM Incomplete right bundle branch block is now Present Confirmed by Shaun Daly ([id number]) on 07/21/2019 12:57:59 PM Referred By: [facility] Confirmed By:Celestine Daly
[2019-07-21] MEDS ORDERED: WARFARIN SOD 2 MG TAB PO SCH (16:00)
[2019-07-21] MEDS ORDERED: VANCOMYCIN HCL 1,500 MG in SODIUM CHLORIDE 0.9% 500 ML IV SCH (16:30)
--- NOTE | 2019-07-21 18:02 | Hospitalist Progress Note ---
Date of Service July 21, 2019 Assessment & Plan (1) Sepsis: 78-year-old male was admitted on 21 July 2019 after complaining of right lower extremity pain and erythema. Sepsis, right lower extremity cellulitis: Febrile, tachypneic, elevated lactate to 3.5. Procalcitonin and influenza negative. CTA chest notes trace bilateral pleural effusions without evidence of pneumonia. Blood cultures pending. Given zosyn and vancomycin in ED. Nasal MRSA was negative, so stopped vanc. - Started on Rocephin as inpatient. Tylenol for pain control. Chronic lower extremity DVT: Is normally on Coumadin. Admit INR 3.9, this a.m. recheck 3.8. His Coumadin 2 mg daily has been held. Hypokalemia: Potassium down to 3.3. Replaced, monitor. Acute kidney injury: Admit creatinine 1.44. BUN 22. On normal saline at 125 mL an hour. Monitoring. Thrombocytopenia: Platelets down to 110. No known recent history of bleeding. Cirrhosis: Seen on CTA chest. There is no mention of this in the provided present medical record. Admission LFTs and ammonia level were normal. Abdomen seems a little distended but does not have a palpable fluid wave consistent with ascites. No reported abdominal pain. Do not believe he has SBP at present. Ongoing medical issues: - CAD: Continue home aspirin, atenolol, and as needed nitroglycerin. - ? history of afib: Mentioned in group home record without context. Admit EKG was sinus tachycardia with an incomplete RBBB and a LAFB. - Hyperlipidemia: Continue home ezetimibe and pravastatin. - Alzheimer's disease: Records mentioned that patient tends to communicate intermittently at baseline. Continue home amantadine. Also has aripiprazole, rozerem, and Vistaril. Code status: Conditional code. Requests ACLS, chest compressions, and defibrillation. Does not wish to have artificial ventilation or intubation. Diet: Heart healthy. DVT prophy: Coumadin as above. PT/OT: Deferred on admit. Disbo: Admitted to PCU telemetry. Currently incarcerated at [facility]. (2) Cellulitis of right lower extremity: (3) DVT, lower extremity: (4) Hypokalemia: (5) Acute kidney injury: (6) Thrombocytopenia: (7) Cirrhosis: (8) Coronary artery disease: (9) Hyperlipidemia: (10) Alzheimer disease: Supervising Physician Co-Signing Physician Notes Patient seen and examined with PGY-3 Dr. Garcia. Agree with history, exam findings, assessment and plan of care as outlined. In brief, Mr. Muller is a 78 year old male with history of dementia, CAD, chronic L LE DVT (AC with coumadin) admitted with sepsis secondary to right leg cellulitis. He is not able to give much history this morning, but does endorse some right leg pain. Afebrile. Right leg with erythema of the anterior randle wrapping around to the calf. Mildly tender. Warm. Abdomen is obese but not tense and no fluid wave. 1. Sepsis 2/2 cellulitis. MRSA neg. Continue ceftriaxone. 2. EDSON. likely prerenal. Fluids. 3. Cirrhosis by imaging. On review of records, no prior history of hepatitis C or other etiology of cirrhosis. No signs of SBP. Platelets a bit low, but will keep an eye on this. 4. chronic Left LE DVT. Anticoag with coumadin. INR 3.8. Holding coumadin. Other chronic issues are stable. Dispo: pending clinical improvement. Subjective Found patient resting comfortably in bed. He does not volunteer any information but will try to answer questions with some garbled speech. Presently says that his right leg hurts a little bit but otherwise denies any pain to include abdominal pain or difficulty breathing. He says he is presently in the hospital because of his leg. Review of Systems Review of Systems: Unable to obtain full ROS due to patient's underlying Alzheimer's disease. Basic ROS per HPI as above. Physical Exam Physical Exam: General Appearance: Awake, alert & oriented, comfortable in general, NAD. CV: +S1S2 RRR, no murmur. Pulm: Clear to auscultation throughout. Abdomen: +BS, soft, non-tender. Most likely obese habitus. Abdomen is not tense and no palpable fluid wave. Extremities: There are chronic skin changes on the bilateral distal lower extremities. The right leg beginning about one third down the tibia and proceeding distally has a more notable diffuse erythema and warmth. The general right leg distal to the knee appears more edematous as well. The warm areas are mildly tender to palpation. Neuro: No gross neuro deficits. Results & Data ([facility]) Vital Signs (Past 12 Hours) Vital Signs Temp Pulse Pulse Resp BP Pulse Ox 07/21/19 16:04 36.9 C 52 L 19 90/59 L 94 07/21/19 16:00 68 07/21/19 11:38 38 C H 74 18 100/65 95 07/21/19 07:53 37.2 C 74 18 99/62 L 97 Laboratory Results 07/21/19 07/21/19 07/21/19 Range/Units 15:31 12:01 12:01 WBC (4.8-10.8) K/uL RBC (4.7-6.1) M/uL Hgb (14.0-18.0) g/dL Hct (42-52) % MCV (80-100) fL MCH (25-34) pg MCHC (32-36) g/dL RDW Std Deviation (36.4-46.3) fL RDW Coeff of Tamara (11.5-14.5) % Plt Count (130-400) K/uL MPV (7.4-10.4) fL Immature Gran % (Auto) % Neut % (Auto) % Lymph % (Auto) % Dunn % (Auto) % Eos % (Auto) % Baso % (Auto) % Immature Gran # (Auto) (0.00-0.02) K/uL Neut # (Auto) (1.4-6.5) K/uL Lymph # (Auto) (1.2-3.4) K/uL Dunn # (Auto) (0.11-0.59) K/uL Eos # (Auto) (0-0.5) K/uL Baso # (Auto) (0-0.2) K/uL PT (9.0-12.0) Seconds INR (0.9-1.1) APTT (21.0-31.0) Seconds PTT Ratio Sodium (136-145) mmol/L Potassium (3.5-5.1) mmol/L Chloride (98-107) mmol/L Carbon Dioxide (21-32) mmol/L Anion Gap (3-11) BUN (7-18) mg/dl Creatinine (0.6-1.4) mg/dl Est Cr Clr Drug Dosing ml/min Est GFR ( Amer) Est GFR (Non-Af Amer) BUN/Creatinine Ratio (10-20) Glucose (70-99) mg/dl Lactate (0.4-2.0) mmol/L Calcium (8.5-10.1) mg/dl Magnesium (1.8-2.4) mg/dl Total Bilirubin (0.2-1) mg/dl AST (15-37) U/L ALT (12-78) U/L Alkaline Phosphatase (45-117) U/L Ammonia 15.1 (11-32) umol/L Lactate Dehydrogenase 248 H (87-241) U/L Troponin I (0-0.045) ng/ml Total Protein (6.4-8.2) gm/dl Albumin (3.4-5.0) gm/dl Globulin (2.5-4.0) gm/dl Albumin/Globulin Ratio (0.9-2) Procalcitonin (0-0.5) ng/ml Urine Color Urine Appearance (Clear) Urine pH (4.5-7.5) Ur Specific [place] (1.000-1.030) Urine Protein (Negative) Urine Glucose (UA) (Negative) Urine Ketones (Negative) Urine Blood (Negative) Urine Nitrite (Negative) Urine Bilirubin (Negative) Urine Urobilinogen (Negative) Ur Leukocyte Esterase (Negative) Urine WBC (Auto) (0-5) /hpf Urine RBC (Auto) (0-4) /hpf U Hyaline Cast (Auto) (0-5) /lpf U Epithel Cells (Auto) (0-5) /lpf Urine Bacteria (Auto) (Negative) Nasal Screen MRSA (PCR) (Negative) Random Vancomycin 9.3 mcg/ml Influenza Type A (PCR) (Neg) Influenza Type B (PCR) (Neg) 07/21/19 07/21/19 07/21/19 Range/Units 05:29 05:29 05:29 WBC 13.00 H (4.8-10.8) K/uL RBC 4.62 L (4.7-6.1) M/uL Hgb 14.9 (14.0-18.0) g/dL Hct 43.4 (42-52) % MCV 93.9 (80-100) fL MCH 32.3 (25-34) pg MCHC 34.3 (32-36) g/dL RDW Std Deviation 49.2 H (36.4-46.3) fL RDW Coeff of Tamara 14.6 H (11.5-14.5) % Plt Count 110 L (130-400) K/uL MPV 9.7 (7.4-10.4) fL Immature Gran % (Auto) % Neut % (Auto) % Lymph % (Auto) % Dunn % (Auto) % Eos % (Auto) % Baso % (Auto) % Immature Gran # (Auto) (0.00-0.02) K/uL Neut # (Auto) (1.4-6.5) K/uL Lymph # (Auto) (1.2-3.4) K/uL Dunn # (Auto) (0.11-0.59) K/uL Eos # (Auto) (0-0.5) K/uL Baso # (Auto) (0-0.2) K/uL PT 35.2 H (9.0-12.0) Seconds INR 3.8 H (0.9-1.1) APTT (21.0-31.0) Seconds PTT Ratio Sodium 142 (136-145) mmol/L Potassium 3.3 L D (3.5-5.1) mmol/L Chloride 110 H (98-107) mmol/L Carbon Dioxide 25 (21-32) mmol/L Anion Gap 8.0 (3-11) BUN 22 H (7-18) mg/dl Creatinine 1.46 H (0.6-1.4) mg/dl Est Cr Clr Drug Dosing 56.4 ml/min Est GFR ( Amer) 53.4 Est GFR (Non-Af Amer) 46.1 BUN/Creatinine Ratio 15.0 (10-20) Glucose 114 H (70-99) mg/dl Lactate (0.4-2.0) mmol/L Calcium 8.3 L (8.5-10.1) mg/dl Magnesium (1.8-2.4) mg/dl Total Bilirubin (0.2-1) mg/dl AST (15-37) U/L ALT (12-78) U/L Alkaline Phosphatase (45-117) U/L Ammonia (11-32) umol/L Lactate Dehydrogenase (87-241) U/L Troponin I (0-0.045) ng/ml Total Protein (6.4-8.2) gm/dl Albumin (3.4-5.0) gm/dl Globulin (2.5-4.0) gm/dl Albumin/Globulin Ratio (0.9-2) Procalcitonin (0-0.5) ng/ml Urine Color Urine Appearance (Clear) Urine pH (4.5-7.5) Ur Specific [place] (1.000-1.030) Urine Protein (Negative) Urine Glucose (UA) (Negative) Urine Ketones (Negative) Urine Blood (Negative) Urine Nitrite (Negative) Urine Bilirubin (Negative) Urine Urobilinogen (Negative) Ur Leukocyte Esterase (Negative) Urine WBC (Auto) (0-5) /hpf Urine RBC (Auto) (0-4) /hpf U Hyaline Cast (Auto) (0-5) /lpf U Epithel Cells (Auto) (0-5) /lpf Urine Bacteria (Auto) (Negative) Nasal Screen MRSA (PCR) (Negative) Random Vancomycin mcg/ml Influenza Type A (PCR) (Neg) Influenza Type B (PCR) (Neg) 07/21/19 07/20/19 07/20/19 Range/Units 01:50 23:46 22:26 WBC (4.8-10.8) K/uL RBC (4.7-6.1) M/uL Hgb (14.0-18.0) g/dL Hct (42-52) % MCV (80-100) fL MCH (25-34) pg MCHC (32-36) g/dL RDW Std Deviation (36.4-46.3) fL RDW Coeff of Tamara (11.5-14.5) % Plt Count (130-400) K/uL MPV (7.4-10.4) fL Immature Gran % (Auto) % Neut % (Auto) % Lymph % (Auto) % Dunn % (Auto) % Eos % (Auto) % Baso % (Auto) % Immature Gran # (Auto) (0.00-0.02) K/uL Neut # (Auto) (1.4-6.5) K/uL Lymph # (Auto) (1.2-3.4) K/uL Dunn # (Auto) (0.11-0.59) K/uL Eos # (Auto) (0-0.5) K/uL Baso # (Auto) (0-0.2) K/uL PT (9.0-12.0) Seconds INR (0.9-1.1) APTT (21.0-31.0) Seconds PTT Ratio Sodium (136-145) mmol/L Potassium (3.5-5.1) mmol/L Chloride (98-107) mmol/L Carbon Dioxide (21-32) mmol/L Anion Gap (3-11) BUN (7-18) mg/dl Creatinine (0.6-1.4) mg/dl Est Cr Clr Drug Dosing ml/min Est GFR ( Amer) Est GFR (Non-Af Amer) BUN/Creatinine Ratio (10-20) Glucose (70-99) mg/dl Lactate 3.5 H* (0.4-2.0) mmol/L Calcium (8.5-10.1) mg/dl Magnesium (1.8-2.4) mg/dl Total Bilirubin (0.2-1) mg/dl AST (15-37) U/L ALT (12-78) U/L Alkaline Phosphatase (45-117) U/L Ammonia (11-32) umol/L Lactate Dehydrogenase (87-241) U/L Troponin I (0-0.045) ng/ml Total Protein (6.4-8.2) gm/dl Albumin (3.4-5.0) gm/dl Globulin (2.5-4.0) gm/dl Albumin/Globulin Ratio (0.9-2) Procalcitonin (0-0.5) ng/ml Urine Color Yellow Urine Appearance Clear (Clear) Urine pH 6.5 (4.5-7.5) Ur Specific [place] 1.011 (1.000-1.030) Urine Protein Negative (Negative) Urine Glucose (UA) Negative (Negative) Urine Ketones Negative (Negative) Urine Blood Trace H (Negative) Urine Nitrite Negative (Negative) Urine Bilirubin Negative (Negative) Urine Urobilinogen Negative (Negative) Ur Leukocyte Esterase Negative (Negative) Urine WBC (Auto) 0 (0-5) /hpf Urine RBC (Auto) 0-4 (0-4) /hpf U Hyaline Cast (Auto) 0 (0-5) /lpf U Epithel Cells (Auto) 0-5 (0-5) /lpf Urine Bacteria (Auto) Negative (Negative) Nasal Screen MRSA (PCR) Negative (Negative) Random Vancomycin mcg/ml Influenza Type A (PCR) (Neg) Influenza Type B (PCR) (Neg) 07/20/19 07/20/19 07/20/19 Range/Units 21:55 21:55 21:55 WBC (4.8-10.8) K/uL RBC (4.7-6.1) M/uL Hgb (14.0-18.0) g/dL Hct (42-52) % MCV (80-100) fL MCH (25-34) pg MCHC (32-36) g/dL RDW Std Deviation (36.4-46.3) fL RDW Coeff of Tamara (11.5-14.5) % Plt Count (130-400) K/uL MPV (7.4-10.4) fL Immature Gran % (Auto) % Neut % (Auto) % Lymph % (Auto) % Dunn % (Auto) % Eos % (Auto) % Baso % (Auto) % Immature Gran # (Auto) (0.00-0.02) K/uL Neut # (Auto) (1.4-6.5) K/uL Lymph # (Auto) (1.2-3.4) K/uL Dunn # (Auto) (0.11-0.59) K/uL Eos # (Auto) (0-0.5) K/uL Baso # (Auto) (0-0.2) K/uL PT 36.7 H (9.0-12.0) Seconds INR 3.9 H (0.9-1.1) APTT 38.4 H (21.0-31.0) Seconds PTT Ratio 1.4 Sodium 141 (136-145) mmol/L Potassium 3.9 (3.5-5.1) mmol/L Chloride 107 (98-107) mmol/L Carbon Dioxide 27 (21-32) mmol/L Anion Gap 6.0 (3-11) BUN 20 H (7-18) mg/dl Creatinine 1.44 H (0.6-1.4) mg/dl Est Cr Clr Drug Dosing 58.6 ml/min Est GFR ( Amer) 54.3 Est GFR (Non-Af Amer) 46.8 BUN/Creatinine Ratio 14.1 (10-20) Glucose 132 H (70-99) mg/dl Lactate 3.0 H* (0.4-2.0) mmol/L Calcium 8.7 (8.5-10.1) mg/dl Magnesium 2.1 (1.8-2.4) mg/dl Total Bilirubin 0.7 (0.2-1) mg/dl AST 21 (15-37) U/L ALT 26 (12-78) U/L Alkaline Phosphatase 87 (45-117) U/L Ammonia (11-32) umol/L Lactate Dehydrogenase (87-241) U/L Troponin I < 0.015 (0-0.045) ng/ml Total Protein 8.6 H (6.4-8.2) gm/dl Albumin 4.0 (3.4-5.0) gm/dl Globulin 4.6 H (2.5-4.0) gm/dl Albumin/Globulin Ratio 0.9 (0.9-2) Procalcitonin (0-0.5) ng/ml Urine Color Urine Appearance (Clear) Urine pH (4.5-7.5) Ur Specific [place] (1.000-1.030) Urine Protein (Negative) Urine Glucose (UA) (Negative) Urine Ketones (Negative) Urine Blood (Negative) Urine Nitrite (Negative) Urine Bilirubin (Negative) Urine Urobilinogen (Negative) Ur Leukocyte Esterase (Negative) Urine WBC (Auto) (0-5) /hpf Urine RBC (Auto) (0-4) /hpf U Hyaline Cast (Auto) (0-5) /lpf U Epithel Cells (Auto) (0-5) /lpf Urine Bacteria (Auto) (Negative) Nasal Screen MRSA (PCR) (Negative) Random Vancomycin mcg/ml Influenza Type A (PCR) (Neg) Influenza Type B (PCR) (Neg) 07/20/19 07/20/19 07/20/19 Range/Units 21:55 21:55 21:40 WBC 7.41 (4.8-10.8) K/uL RBC 5.06 (4.7-6.1) M/uL Hgb 16.9 (14.0-18.0) g/dL Hct 47.7 (42-52) % MCV 94.3 (80-100) fL MCH 33.4 (25-34) pg MCHC 35.4 (32-36) g/dL RDW Std Deviation 49.3 H (36.4-46.3) fL RDW Coeff of Tamara 14.5 (11.5-14.5) % Plt Count 136 (130-400) K/uL MPV 9.9 (7.4-10.4) fL Immature Gran % (Auto) 0.3 % Neut % (Auto) 93.4 % Lymph % (Auto) 4.9 % Dunn % (Auto) 1.3 % Eos % (Auto) 0.1 % Baso % (Auto) 0.0 % Immature Gran # (Auto) 0.02 (0.00-0.02) K/uL Neut # (Auto) 6.92 H (1.4-6.5) K/uL Lymph # (Auto) 0.36 L (1.2-3.4) K/uL Dunn # (Auto) 0.10 L (0.11-0.59) K/uL Eos # (Auto) 0.01 (0-0.5) K/uL Baso # (Auto) 0.00 (0-0.2) K/uL PT (9.0-12.0) Seconds INR (0.9-1.1) APTT (21.0-31.0) Seconds PTT Ratio Sodium (136-145) mmol/L Potassium (3.5-5.1) mmol/L Chloride (98-107) mmol/L Carbon Dioxide (21-32) mmol/L Anion Gap (3-11) BUN (7-18) mg/dl Creatinine (0.6-1.4) mg/dl Est Cr Clr Drug Dosing ml/min Est GFR ( Amer) Est GFR (Non-Af Amer) BUN/Creatinine Ratio (10-20) Glucose (70-99) mg/dl Lactate (0.4-2.0) mmol/L Calcium (8.5-10.1) mg/dl Magnesium (1.8-2.4) mg/dl Total Bilirubin (0.2-1) mg/dl AST (15-37) U/L ALT (12-78) U/L Alkaline Phosphatase (45-117) U/L Ammonia (11-32) umol/L Lactate Dehydrogenase (87-241) U/L Troponin I (0-0.045) ng/ml Total Protein (6.4-8.2) gm/dl Albumin (3.4-5.0) gm/dl Globulin (2.5-4.0) gm/dl Albumin/Globulin Ratio (0.9-2) Procalcitonin 0.17 (0-0.5) ng/ml Urine Color Urine Appearance (Clear) Urine pH (4.5-7.5) Ur Specific [place] (1.000-1.030) Urine Protein (Negative) Urine Glucose (UA) (Negative) Urine Ketones (Negative) Urine Blood (Negative) Urine Nitrite (Negative) Urine Bilirubin (Negative) Urine Urobilinogen (Negative) Ur Leukocyte Esterase (Negative) Urine WBC (Auto) (0-5) /hpf Urine RBC (Auto) (0-4) /hpf U Hyaline Cast (Auto) (0-5) /lpf U Epithel Cells (Auto) (0-5) /lpf Urine Bacteria (Auto) (Negative) Nasal Screen MRSA (PCR) (Negative) Random Vancomycin mcg/ml Influenza Type A (PCR) Neg for Influ A (Neg) Influenza Type B (PCR) Neg for Influ B (Neg) Medications Administered Current Inpatient Medications Acetaminophen (Tylenol) 650 mg PO Q4H PRN PRN Reason: mild pain or fever Stop: 08/20/19 02:00 Last Admin: 07/21/19 11:53 Dose: 650 mg Documented by: Aripiprazole (Abilify) 5 mg PO DAILY [facility] Stop: 08/20/19 08:59 Last Admin: 07/21/19 07:59 Dose: 5 mg Documented by: Aspirin (Ecotrin Ectab) 81 mg PO DAILY [facility] Stop: 08/20/19 08:59 Last Admin: 07/21/19 07:59 Dose: 81 mg Documented by: Atenolol (Tenormin) 12.5 mg PO DAILY [facility] Stop: 08/20/19 08:59 Last Admin: 07/21/19 07:59 Dose: 12.5 mg Documented by: Docusate Sodium (Colace) 100 mg PO DAILY [facility] Stop: 08/20/19 08:59 Last Admin: 07/21/19 07:59 Dose: 100 mg Documented by: Ezetimibe (Zetia) 10 mg PO DAILY [facility] Stop: 08/20/19 08:59 Last Admin: 07/21/19 07:59 Dose: 10 mg Documented by: Hydroxyzine HCl (Vistaril) 50 mg PO HS [facility] Stop: 08/20/19 20:59 Hydroxyzine HCl (Vistaril) 25 mg PO DAILY [facility] Stop: 08/20/19 08:59 Last Admin: 07/21/19 07:59 Dose: 25 mg Documented by: Sodium Chloride (Nss 1000ml) 1,000 mls @ 125 mls/hr IV .Q8H [facility] Stop: 08/20/19 02:00 Last Admin: 07/21/19 12:05 Dose: 125 mls/hr Documented by: Ceftriaxone Sodium 2,000 mg/ (Dextrose) 70 mls @ 140 mls/hr IV Q24H [facility]; Protocol Stop: 07/30/19 19:59 Memantine (Namenda) 10 mg PO BID [facility] Stop: 08/20/19 08:59 Last Admin: 07/21/19 07:59 Dose: 10 mg Documented by: Miscellaneous (Order Awaiting Action) 1 ea N/A QS [facility] Stop: 08/20/19 07:59 Last Admin: 07/21/19 16:28 Dose: Not Given Documented by: Nitroglycerin (Nitrostat) 0.4 mg SL PRN PRN PRN Reason: Chest Pain Stop: 08/20/19 02:00 Ondansetron HCl (Zofran) 4 mg IV Q6H PRN PRN Reason: nausea or vomiting Stop: 08/20/19 02:00 Pantoprazole Sodium (Protonix) 40 mg PO QAM [facility] Stop: 08/20/19 08:59 Last Admin: 07/21/19 07:59 Dose: 40 mg Documented by: Pravastatin Sodium (Pravachol) 80 mg PO HS [facility] Stop: 08/20/19 20:59 Warfarin Sodium (Coumadin) 2 mg PO DAILY@1600 [facility] Stop: 08/20/19 15:59 Resident Activity Tracking Resident Involvement: Resident Care Provided Care Provided: Adult Hospital Medicine
[2019-07-21] MEDS ORDERED: cefTRIAXone SODIUM 2,000 MG in DEXTROSE 5% 50 ML IV SCH (20:00)
[2019-07-21] MEDS: PRAVASTATIN SOD 40 MG TAB PO SCH (20:00)
[2019-07-22] MEDS ORDERED: MAGNESIUM HYDROXIDE SUSP 30 ML UDC PO PRN (01:38)
[2019-07-22] MEDS ORDERED: MAGNESIUM HYDROXIDE SUSP 30 ML UDC ONE (02:02)
[2019-07-22] MEDS: ACETAMINOPHEN 325 MG TAB PO PRN ×3 (03:41→19:32)
[2019-07-22] MEDS: SODIUM CHLORIDE 0.9% 1000ML 1,000 ML IV SCH (03:49)
[2019-07-22 06:16] LABS: Hematocrit (blood only) 40.3 % (42-52); Hemoglobin 13.7 g/dL (14.0-18.0); Mean Corpuscular Hemoglobin 32.2 pg (25-34); Mean Corpuscular Volume 94.8 fL (80-100); Platelet Count 109 K/uL (130-400); RDW Coefficient of Variation 14.8 % (11.5-14.5); RDW Standard Deviation 51.8 fL (36.4-46.3); Red Blood Count 4.25 M/uL (4.7-6.1)
[2019-07-22 06:54] LABS: BUN Creatinine Ratio 20.2 (10-20); Creatinine Clr Calc Pharmacy 63.7 ml/min; Est GFR (African American) 63.8; INR 2.9 (0.9-1.1); Prothrombin Time 27.7 Seconds (9.0-12.0)
[2019-07-22] MEDS: EZETIMIBE 10 MG TABLET PO SCH (07:48)
[2019-07-22] MEDS: ASPIRIN 81 MG ECTAB PO SCH (07:48)
[2019-07-22] MEDS: DOCUSATE SODIUM 100 MG CAP PO SCH (07:48)
[2019-07-22] MEDS: ARIPiprazole 5 MG TAB PO SCH (07:48)
[2019-07-22] MEDS: MEMANTINE HCL 10 MG TAB PO SCH ×2 (07:49→19:33)
[2019-07-22] MEDS: ATENOLOL 25 MG TABLET PO SCH (07:49)
[2019-07-22] MEDS: PANTOprazole 40 MG TAB PO SCH (07:49)
[2019-07-22] MEDS: cephALEXin 500 MG CAP PO SCH (11:40)
--- NOTE | 2019-07-22 14:25 | Hospitalist Progress Note ---
Date of Service July 22, 2019 Assessment & Plan (1) Sepsis: 78-year-old male was admitted on 21 July 2019 after complaining of right lower extremity pain and erythema. Sepsis, right lower extremity cellulitis CTA chest notes trace bilateral pleural effusions without evidence of pneumonia. Initially started on Vanco and Zosyn, transitioned to Rocephin. Blood cultures negative so far, still having mild feverscontinue Tylenol and normal saline at 80 cc/h, 1L bag While clinically improving, still having periodic fevers and some dyspnea while getting up to the bathroom today Recheck lactate, will get chest x-ray to assess for pneumonia We will keep the patient on Rocephin 2 g daily Dyspnea, wheezing Self reports a long history of smoking, no controlling inhalers Daily DuoNeb and albuterol nebs every 4 as needed Recheck x-ray as the patient has been spiking fevers today, query pneumonia Chronic lower extremity DVT Is normally on Coumadin. Admit INR 3.9, this a.m. recheck 3.8. INR today 2.9 after 2 days of holding Coumadin We will reduce weekly Coumadin dosing by 15% during duration of antibiotic treatment We will restart Coumadin this evening 1 mg Wednesday, 1 mg Wednesday and 2 mg/day thereafter Hypokalemia Potassium down to 3.3. Replaced, monitor. Acute kidney injury Admit creatinine 1.44. BUN 22. Improved today, BUN is still elevated, will continue IV fluids at 80 cc/h, 1 L bag Thrombocytopenia Platelets down to 110. No known recent history of bleeding. Cirrhosis Seen on CTA chest. There is no mention of this in the provided present medical record. Admission LFTs and ammonia level were normal. Abdomen seems a little distended but does not have a palpable fluid wave consistent with ascites. No reported abdominal pain. Do not believe he has SBP at present. Ongoing medical issues - CAD: Continue home aspirin, atenolol, and as needed nitroglycerin. - ? history of afib: [facility]ed in [facility] without context. Admit EKG was sinus tachycardia with an incomplete RBBB and a LAFB. - Hyperlipidemia: Continue home ezetimibe and pravastatin. - Alzheimer's disease: Records mentioned that patient tends to communicate intermittently at baseline. Continue home amantadine. Also has aripiprazole, rozerem, and Vistaril. Code status: Conditional code. Requests ACLS, chest compressions, and defibrillation. Does not wish to have artificial ventilation or intubation. Diet: Heart healthy. DVT prophy: Coumadin as above. PT/OT: Deferred on admit. Disbo: Admitted to PCU telemetry. Currently incarcerated at [facility]. (2) Cellulitis of right lower extremity: (3) DVT, lower extremity: (4) Hypokalemia: (5) Acute kidney injury: (6) Thrombocytopenia: (7) Cirrhosis: (8) Coronary artery disease: (9) Hyperlipidemia: (10) Alzheimer disease: Supervising Physician Co-Signing Physician Notes Patient seen and examined with PGY-3 Dr. Giovanni Shook. Agree with history, exam findings, assessment and plan of care as outlined. In brief, Mr. Muller is a 78 year old male with history of dementia, CAD, chronic L LE DVT (AC with coumadin) admitted with sepsis secondary to right leg cellulitis. He is not able to give much history this morning, but does endorse some right leg pain. Right leg with erythema of the anterior randle wrapping around to the calf. Mildly tender. Warm. Appears short of breath with wheezes in all lung benedict. 1. Sepsis 2/2 cellulitis. MRSA neg. Continue ceftriaxone. Lactate on admission 3.5. Reordered yesterday, but LDH resulted instead. Ordered again today, and again got LDH. Will plan to recheck lactate level with AM labs to ensure that it is downtrending per sepsis protocol. Fever in the afternoon--tylenol ok. Check CXR given new shortness of breath/wheezing with exertion. 2. EDSON resolved. 3. Cirrhosis by imaging. On review of records, no prior history of hepatitis C or other etiology of cirrhosis. No signs of SBP. Platelets a bit low, but will keep an eye on this. 4. chronic Left LE DVT. Anticoag with coumadin. INR 2.9. Coumadin held for 2 nights now. Will restart at 1mg tonight (previously on 2mg nightly). Other chronic issues are stable. Dispo: pending clinical improvement. Subjective Patient is comfortable in bed today. Still having pain in his right calf. At times responds inappropriately to questions likely secondary to baseline dementia. Review of Systems Review of Systems: Unobtainable due to cognitive status (Baseline dementia) Physical Exam Constitutional: WD/WN, vitals as above Eyes: PERRL, conjunctivae normal, anicteric sclerae ENMT: external ear and nose normal, oropharynx normal Neck: trachea midline, no thyromegaly Respiratory: normal respiratory effort; no respiratory distress, no labored breathing and does not use accessory muscles Auscultation: + wheezes Cardiovascular: RRR, no murmur, no edema Gastrointestinal (Abdomen): normal bowel sounds, soft, nontender, no hepatosplenomegaly Musculoskeletal: 1+ edema in the left lower extremity, 2+ edema in the right lower extremity Skin: Erythema and warmth of the right lower extremity up to the mid calf, improved today per attending Psychiatric: Orientation: alert Results & Data ([facility]) Vital Signs (Past 12 Hours) Vital Signs Temp Pulse Resp BP Pulse Ox 07/22/19 11:36 38.3 C H 80 20 132/72 96 07/22/19 05:59 37.1 C 07/22/19 03:30 37.8 C H 81 18 109/63 95 Resident Activity Tracking Resident Involvement: Resident Care Provided Care Provided: Adult Hospital Medicine
[2019-07-22] MEDS ORDERED: SODIUM CHLORIDE 0.9% 1000ML 1,000 ML IV SCH (14:45)
[2019-07-22] MEDS ORDERED: ALBUTEROL 0.083% NEBU SOLN 3 ML VIAL NEB PRN (14:51)
[2019-07-22] MEDS: ALBUT/IPRATROP 3MG/0.5MG NEB 3 ML VIAL NEB SCH (15:11)
[2019-07-22] MEDS: cefTRIAXone SODIUM 2,000 MG in DEXTROSE 5% 50 ML IV SCH (15:22)
--- NOTE | 2019-07-22 15:37 | XRay Report ---
SINGLE VIEW CHEST CLINICAL HISTORY: Dyspnea. Fever. FINDINGS: An AP, portable, upright chest radiograph is compared to chest x-ray and chest CT dated 06/23. The examination is degraded by portable technique and apical lordotic positioning. The heart is enlarged noting atherosclerotic calcification of the thoracic aorta. Pulmonary vascular congestion has improved from yesterday. There are small pleural effusions with bibasilar atelectasis. No pneumo thorax is seen. The skeletal structures are osteopenic. The bony thorax is grossly intact. Surgical c lips are seen in the right lower neck. IMPRESSION: Cardiomegaly. Pulmonary vascular congestion has improved from yesterday. ACT 112: Negative or not required by law. Electronically signed by: Yan Valenzuela M.D. 07/22/2019 3:36 PM
[2019-07-22] MEDS ORDERED: WARFARIN SOD 1 MG TAB PO SCH (16:00)
[2019-07-22] MEDS: PRAVASTATIN SOD 40 MG TAB PO SCH (19:33)
[2019-07-23] MEDS: ALBUT/IPRATROP 3MG/0.5MG NEB 3 ML VIAL NEB SCH (07:01)
[2019-07-23 07:16] LABS: Basophils # (auto) 0.01 K/uL (0-0.2); Basophils % (auto) 0.1 %; Hematocrit (blood only) 37.2 % (42-52); Hemoglobin 12.9 g/dL (14.0-18.0); Immature Granulocytes # (auto) 0.06 K/uL (0.00-0.02); Immature Granulocytes % (auto) 0.5 %; Lymphocytes # (auto) 0.77 K/uL (1.2-3.4); Lymphocytes % (auto) 6.4 %; Mean Corpuscular Hemoglobin 32.6 pg (25-34); Mean Corpuscular Hgb Conc 34.7 g/dL (32-36); Mean Corpuscular Volume 93.9 fL (80-100); Mean Platelet Volume 9.8 fL (7.4-10.4); Monocytes # (auto) 0.74 K/uL (0.11-0.59); Monocytes % (auto) 6.2 %; Neutrophils # (auto) 10.42 K/uL (1.4-6.5); Neutrophils % (auto) 86.8 %; Platelet Count 111 K/uL (130-400); RDW Coefficient of Variation 14.7 % (11.5-14.5); RDW Standard Deviation 50.4 fL (36.4-46.3); Red Blood Count 3.96 M/uL (4.7-6.1)
[2019-07-23 07:21] LABS: INR 1.7 (0.9-1.1); Prothrombin Time 17.2 Seconds (9.0-12.0)
[2019-07-23 07:44] LABS: BUN Creatinine Ratio 18.8 (10-20); Calcium 8.2 mg/dl (8.5-10.1); Creatinine Clr Calc Pharmacy 69.2 ml/min; Est GFR (African American) 70.5; Est GFR (Non-African American) 60.8; Potassium 4.2 mmol/L (3.5-5.1)
[2019-07-23] MEDS: DOCUSATE SODIUM 100 MG CAP PO SCH (07:49)
[2019-07-23] MEDS: ARIPiprazole 5 MG TAB PO SCH (07:49)
[2019-07-23] MEDS: MEMANTINE HCL 10 MG TAB PO SCH ×2 (07:49→20:05)
[2019-07-23] MEDS: ATENOLOL 25 MG TABLET PO SCH (07:49)
[2019-07-23] MEDS: PANTOprazole 40 MG TAB PO SCH (07:49)
[2019-07-23] MEDS: EZETIMIBE 10 MG TABLET PO SCH (07:50)
[2019-07-23] MEDS: ASPIRIN 81 MG ECTAB PO SCH (07:50)
[2019-07-23] MEDS ORDERED: VANCOMYCIN TROUGH ONE (08:30)
[2019-07-23] MEDS: cefTRIAXone SODIUM 2,000 MG in DEXTROSE 5% 50 ML IV SCH (08:32)
[2019-07-23] MEDS: DOXYCYCLINE HYCLATE 100 MG CAP PO SCH ×2 (13:12→20:05)
--- NOTE | 2019-07-23 15:16 | Hospitalist Progress Note ---
Date of Service July 23, 2019 Assessment & Plan (1) Sepsis: 78-year-old male was admitted on 21 July 2019 after complaining of right lower extremity pain and erythema. Sepsis, right lower extremity cellulitis CTA chest notes trace bilateral pleural effusions without evidence of pneumonia. Initially started on Vanco and Zosyn, transitioned to Rocephin. Patient is having daily fevers, without any other source of infection and cellulitis showed little signs of improvement. Restarted MRSA coverage with doxycycline, continue Rocephin 2 g as well If not improving tomorrow, consider Doppler ultrasound of right lower extremity Dyspnea, wheezing Self reports a long history of smoking, no controlling inhalers Daily DuoNeb and albuterol nebs every 4 as needed Recheck chest x-ray was negative for signs of infection Chronic lower extremity DVT Is normally on Coumadin Was supratherapeutic at 3.9 on antibiotics, Coumadin held 2 days Today's INR is 1.7, restarting normal dosing of Coumadin, 2 mg daily Hypokalemia Replete Acute kidney injury, prerenal Resolved following IV hydration Thrombocytopenia Continue to follow, no signs or symptoms of bleeding. Cirrhosis Seen on CTA chest. There is no mention of this in the provided present medical record. Admission LFTs and ammonia level were normal. Abdomen seems a little distended but does not have a palpable fluid wave consistent with ascites. No reported abdominal pain. Do not believe he has SBP at present. Ongoing medical issues - CAD: Continue home aspirin, atenolol, and as needed nitroglycerin. - ? history of afib: [facility]ed in [facility] without context. Admit EKG was sinus tachycardia with an incomplete RBBB and a LAFB. - Hyperlipidemia: Continue home ezetimibe and pravastatin. - Alzheimer's disease: Records mentioned that patient tends to communicate intermittently at baseline. Continue home amantadine. Also has aripiprazole, rozerem, and Vistaril. Code status: Conditional code. Requests ACLS, chest compressions, and defibrillation. Does not wish to have artificial ventilation or intubation. Diet: Heart healthy. DVT prophy: Coumadin as above. PT/OT: Deferred on admit. Disbo: Transfer to [facility]. Currently incarcerated at [facility]. (2) Cellulitis of right lower extremity: (3) DVT, lower extremity: (4) Hypokalemia: (5) Acute kidney injury: (6) Thrombocytopenia: (7) Cirrhosis: (8) Coronary artery disease: (9) Hyperlipidemia: (10) Alzheimer disease: Supervising Physician Co-Signing Physician Notes Patient seen and examined with PGY-3 Dr. Giovanni Shook. Agree with history, exam findings, assessment and plan of care as outlined. In brief, Mr. Muller is a 78 year old male with history of dementia, CAD, chronic L LE DVT (AC with coumadin) admitted with sepsis secondary to right leg cellulitis. Continues to endorse right leg/calf pain. Spiked a fever yesterday evening then again this afternoon. Right leg with erythema of the anterior randle wrapping around to the calf. Tender. Warm. Fair breath sounds in all lung benedict with faint end expiratory wheezing. 1. Sepsis 2/2 cellulitis. Continue ceftriaxone. Due to daily fevers and clinical improvement lagging behind what I would suspect for appropriate antibiotic coverage, added back MRSA coverage with doxy despite nasal MRSA swab being negative. Ordered new blood cultures. Repeat CXR yesterday without any new consolidations. White blood cell count as been elevated but stable. Lactate from admission has trended down (3.5-->1.5). Could also consider DVT in the right leg (unsure what his INRs are in the outpatient setting) given the continued tenderness and swelling in the leg. 2. EDSON resolved. 3. Cirrhosis by imaging. On review of records, no prior history of hepatitis C or other etiology of cirrhosis. No signs of SBP. Platelets a bit low, but will keep an eye on this. 4. chronic Left LE DVT. Anticoag with coumadin. INR 1.7. Coumadin held for first 2 nights, restarted at 1mg last night and will resume home dose of 2mg tonight. Other chronic issues are stable. Dispo: pending clinical improvement--would like to see improvement in the leg as well as afebrile for 1 day prior to discharge. Subjective No meaningful history, but the patient winces in pain when palpating the right leg Review of Systems Review of Systems: Unable to obtain full ROS due to patient's underlying Alzheimer's disease. Basic ROS per HPI as above. Physical Exam Constitutional: WD/WN, vitals as above Eyes: PERRL, conjunctivae normal, anicteric sclerae ENMT: external ear and nose normal, oropharynx normal Neck: trachea midline, no thyromegaly Respiratory: normal respiratory effort; no respiratory distress, no labored breathing and does not use accessory muscles Auscultation: + wheezes Cardiovascular: RRR, no murmur, no edema Gastrointestinal (Abdomen): normal bowel sounds, soft, nontender, no hepatosplenomegaly Psychiatric: Orientation: alert Results & Data ([facility]) Vital Signs (Past 12 Hours) Vital Signs Temp Pulse Pulse Resp BP Pulse Ox 07/23/19 08:00 37.3 C 90 88 22 110/69 94 07/23/19 07:01 82 18 94
[2019-07-23] MEDS: WARFARIN SOD 2 MG TAB PO SCH (15:42)
[2019-07-23] MEDS ORDERED: SODIUM CHLORIDE 0.9% 1000ML 1,000 ML IV SCH (18:45)
[2019-07-23] MEDS: PRAVASTATIN SOD 40 MG TAB PO SCH (20:06)
[2019-07-24 05:27] LABS: Eosinophils # (auto) 0.01 K/uL (0-0.5); Eosinophils % (auto) 0.1 %; Hematocrit (blood only) 33.9 % (42-52); Hemoglobin 11.7 g/dL (14.0-18.0); Immature Granulocytes # (auto) 0.03 K/uL (0.00-0.02); Immature Granulocytes % (auto) 0.3 %; Lymphocytes # (auto) 0.62 K/uL (1.2-3.4); Lymphocytes % (auto) 6.5 %; Mean Corpuscular Hemoglobin 32.3 pg (25-34); Mean Corpuscular Hgb Conc 34.5 g/dL (32-36); Mean Corpuscular Volume 93.6 fL (80-100); Mean Platelet Volume 9.9 fL (7.4-10.4); Monocytes # (auto) 0.85 K/uL (0.11-0.59); Monocytes % (auto) 8.9 %; Neutrophils # (auto) 7.99 K/uL (1.4-6.5); Neutrophils % (auto) 84.2 %; Platelet Count 102 K/uL (130-400); RDW Coefficient of Variation 14.5 % (11.5-14.5); RDW Standard Deviation 49.4 fL (36.4-46.3); Red Blood Count 3.62 M/uL (4.7-6.1)
[2019-07-24 05:45] LABS: BUN Creatinine Ratio 22.3 (10-20); Calcium 7.9 mg/dl (8.5-10.1); Creatinine Clr Calc Pharmacy 71.6 ml/min; Est GFR (African American) 73.6; Est GFR (Non-African American) 63.5; Potassium 3.6 mmol/L (3.5-5.1)
[2019-07-24 05:47] LABS: INR 1.7 (0.9-1.1); Prothrombin Time 16.8 Seconds (9.0-12.0)
[2019-07-24] MEDS: ALBUT/IPRATROP 3MG/0.5MG NEB 3 ML VIAL NEB SCH (07:38)
[2019-07-24] MEDS: ASPIRIN 81 MG ECTAB PO SCH (09:35)
[2019-07-24] MEDS: ARIPiprazole 5 MG TAB PO SCH (09:35)
[2019-07-24] MEDS: DOCUSATE SODIUM 100 MG CAP PO SCH (09:35)
[2019-07-24] MEDS: PANTOprazole 40 MG TAB PO SCH (09:36)
[2019-07-24] MEDS: MEMANTINE HCL 10 MG TAB PO SCH ×2 (09:36→20:22)
[2019-07-24] MEDS: ATENOLOL 25 MG TABLET PO SCH (09:36)
[2019-07-24] MEDS: DOXYCYCLINE HYCLATE 100 MG CAP PO SCH ×2 (09:40→20:22)
[2019-07-24] MEDS: EZETIMIBE 10 MG TABLET PO SCH (09:40)
[2019-07-24] MEDS: cefTRIAXone SODIUM 2,000 MG in DEXTROSE 5% 50 ML IV SCH (13:45)
--- NOTE | 2019-07-24 13:49 | Hospitalist Progress Note ---
Date of Service July 24, 2019 Assessment & Plan (1) Sepsis: 78-year-old male was admitted on 21 July 2019 after complaining of right lower extremity pain and erythema. Sepsis, right lower extremity cellulitis Hemodynamically stable. Lactate elevated on admission, normalized with antibiotics and fluid support. - CTA chest notes trace bilateral pleural effusions without evidence of pneumonia. Initially started on Vanco and Zosyn, transitioned to Rocephin --> Keflex then rocephin+doxy - Staph unlikely given nonpurulent infection, suspect strep. Will narrow back to keflex. If worsening will re-evaluate, but would not call true treatment failure until 48-72 hours without improvement SVT as below Right superficial venous thrombosis - RLE venous doppler for DVT shows no DVT, but 5 cm superficial venous thrombosis. Continue warfarin as below. 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 Restarted coumadin yesterday, no change at this time and trend INR daily Hypokalemia - Resolved Acute kidney injury, prerenal Resolved Thrombocytopenia Continue to follow, no signs or symptoms of bleeding. Cirrhosis Seen on CTA chest. There is no mention of this in the provided present medical record. Admission LFTs and ammonia level were normal. Abdomen seems a little distended but does not have a palpable fluid wave consistent with ascites. No reported abdominal pain. No signs of SBP at present. CAD - Continue home aspirin, atenolol, and as needed nitroglycerin. History of afib - Admit EKG was sinus tachycardia with an incomplete RBBB and a LAFB. - Continue warfain as above Hyperlipidemia - Continue home ezetimibe and pravastatin. Alzheimer's disease - Records indicate that patient tends to communicate intermittently at baseline. 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 Requests ACLS, chest compressions, and defibrillation. Does not wish to have artificial ventilation or intubation. Diet: Heart healthy. DVT prophy: Coumadin as above. PT/OT: Deferred on admit. Mostly wheelchair bound per [facility]. Disbo: Transfer to [facility]. Currently incarcerated at [facility]. Supervising Physician Co-Signing Physician Notes I personally examined the patient and verified all amezcua points of history and exam, discussed case, and agree with decision making with Dr Stevenson. Seems to be feeling okay. Very limited historian. No new complaints. Vitals noted, in general he is awake and alert pleasant no distress. HEENT normocephalic atraumatic mucous membranes are moist. Breathing unlabored no accessory muscle use good effort. Skin shows no rashes no pallor or icterus. Lower extremity cellulitis complicated by extensive superficial phlebitiscontinue ceftriaxone, continue Coumadin, seems to be improving given that he is no longer febrile and has no white count. I suspect the dramatic skin changes are because of the combination of infection and phlebitic changes Otherwise as above Subjective History unreliable due to chronic dementia. Zeeshan reports that overall he feels okay this morning, denies fever, chills, sweats. Continues to endorse discomfort in his right lower extremity. Is not sure if there is any change compared to prior days. Voices no questions or concerns at bedside. Review of Systems Review of Systems: Unreliable due to mental status/dementia Grossly denies pain, fever, chills, shortness of breath, difficulty breathing, abdominal pain, nausea, vomiting. Endorses some pain in his right lower leg. Physical Exam Physical Exam: General: Oriented to name, only. No acute distress. Cooperative. HEENT: Atraumatic, normocephalic. Pulm: Trace intermittent expiratory wheezes. No rales. Symmetrical chest rise. No increase work of breathing. No respiratory distress. Cardiac: RRR, -mrg. Radial pulses intact and symmetrical. Abdominal: Soft, nontender. Extremity: Right lower extremity with pitting edema, warmth, and erythema to the knee. Scattered petechiae present. Popliteal pulse intact to palpation, PT pulse intact to palpation. Left lower extremity without pitting edema, warmth, or erythema. PT pulse intact. Results & Data ([facility]) Vital Signs (Past 12 Hours) Vital Signs Temp Pulse Resp BP Pulse Ox 07/24/19 08:38 37.3 C 77 16 116/74 93 07/24/19 07:38 78 18 97 Resident Activity Tracking Resident Involvement: Resident Care Provided Care Provided: Adult Hospital Medicine
--- NOTE | 2019-07-24 15:59 | Ultrasound Report ---
US venous doppler LE RT HISTORY: 78 years-old Male ?DVT, leg swelling acute pain and swelling of the right lower extremity COMPARISON: None available TECHNIQUE: Multiple real-time sonographic images of the right lower extremity deep venous structures were obtained assessing grayscale appearance, color and spectral flow FINDINGS: Normal flow, compressibility, phasicity and augmentation of the right lower extremity deep venous str uctures. Subcutaneous edema of the lower leg. Occlusive superficial venous thrombosis involves the sa phenous vein within the mid to distal calf extending to the ankle. This extends for a length of great er than 5 cm. IMPRESSION: 1. No sonographic evidence of deep venous thrombosis. 2. Long segment superficial venous thrombus as above. ACT 112: Negative or not required by law. The above report was generated using voice recognition software. It may contain grammatical, syntax o r spelling errors. Electronically signed by: Mike Calderon M.D. 07/24/2019 3:58 PM
[2019-07-24] MEDS: WARFARIN SOD 2 MG TAB PO SCH (16:02)
--- NOTE | 2019-07-24 18:13 | Billing Data ---
Date of Service July 24, 2019 Coding Level of Care Code 36514 Subseq Hosp Care Lvl 3
[2019-07-24] MEDS: PRAVASTATIN SOD 40 MG TAB PO SCH (20:21)
[2019-07-25 06:06] LABS: Basophils # (auto) 0.01 K/uL (0-0.2); Basophils % (auto) 0.2 %; Eosinophils # (auto) 0.06 K/uL (0-0.5); Hematocrit (blood only) 32.8 % (42-52); Hemoglobin 11.7 g/dL (14.0-18.0); Immature Granulocytes # (auto) 0.03 K/uL (0.00-0.02); Immature Granulocytes % (auto) 0.5 %; Lymphocytes # (auto) 0.73 K/uL (1.2-3.4); Lymphocytes % (auto) 12.7 %; Mean Corpuscular Hemoglobin 32.8 pg (25-34); Mean Corpuscular Hgb Conc 35.7 g/dL (32-36); Mean Corpuscular Volume 91.9 fL (80-100); Mean Platelet Volume 9.6 fL (7.4-10.4); Monocytes # (auto) 0.73 K/uL (0.11-0.59); Monocytes % (auto) 12.7 %; Neutrophils # (auto) 4.18 K/uL (1.4-6.5); Neutrophils % (auto) 72.9 %; Platelet Count 130 K/uL (130-400); RDW Coefficient of Variation 14.4 % (11.5-14.5); Red Blood Count 3.57 M/uL (4.7-6.1); White Blood Count 5.74 K/uL (4.8-10.8)
[2019-07-25 06:18] LABS: INR 2.4 (0.9-1.1); Prothrombin Time 22.7 Seconds (9.0-12.0)
[2019-07-25 06:40] LABS: BUN Creatinine Ratio 25.3 (10-20); Calcium 8.1 mg/dl (8.5-10.1); Est GFR (African American) 85.4; Est GFR (Non-African American) 73.7; Potassium 3.3 mmol/L (3.5-5.1)
[2019-07-25] MEDS: ALBUT/IPRATROP 3MG/0.5MG NEB 3 ML VIAL NEB SCH (07:15)
[2019-07-25] MEDS: CALCIUM CARBONATE 1250MG TAB PO SCH ×2 (08:56→09:04)
[2019-07-25] MEDS: POTASSIUM CHLORIDE 20 MEQ TABCR PO SCH ×2 (08:56→09:04)
[2019-07-25] MEDS: ARIPiprazole 5 MG TAB PO SCH (08:57)
[2019-07-25] MEDS: EZETIMIBE 10 MG TABLET PO SCH (08:57)
[2019-07-25] MEDS: ATENOLOL 25 MG TABLET PO SCH (08:57)
[2019-07-25] MEDS: MEMANTINE HCL 10 MG TAB PO SCH (08:57)
[2019-07-25] MEDS: ASPIRIN 81 MG ECTAB PO SCH (08:58)
[2019-07-25] MEDS: PANTOprazole 40 MG TAB PO SCH (08:58)
[2019-07-25] MEDS ORDERED: UMECLIDINIUM BROMIDE 62.5MCG/BLISTER 7 PUFFS/INHALER INH SCH (09:00)
[2019-07-25] MEDS: cephALEXin 500 MG CAP PO SCH ×3 (09:45→15:40)
[2019-07-25] MEDS: DOCUSATE SODIUM 100 MG CAP PO SCH (09:45)
[2019-07-25] MEDS ORDERED: POTASSIUM CHLORIDE 20 MEQ/15 ML UDC PO SCH (14:00)
--- NOTE | 2019-07-25 14:16 | Discharge Summary ---
Date of Service July 25, 2019 Admission HPI Per Admitting Provider 78 y/o male with dementia presented to the ED with complaint of right lower extremity pain and erythema. He awakens to verbal, but is not communicating or answering questions. The [facility] guards report that the patient communicates intermittently as a baseline, however today he has been much less verbal. He did have temp elevation to 101F at the [facility] today. Admission Exam Per Admitting Provider General- adult male awakens to verbal, makes eye contact, but not verbalizing. Head- atraumatic Eyes- PERRL, EOMI, anicteric ENT- oropharynx clear Neck- supple, no JVD, no adenopathy, no thyromegaly. Lungs- CTA b/l no R/R/W Heart- regular rhythm; no murmur, no gallop, no rub appreciated Abdomen- normal bowel sounds, soft, nontender. Extremities- Non-pitting edema right leg with erythema from ankle to mid lower leg, + tenderness to touch with heat production. Left leg shows mild edema and less erythema when compared to right. Neuro- alert, orientation not able to assess; PERRL, EOMI; Non-focal. 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 Skin- See ext. exam. No rashes. Principal Diagnosis Right lower extremity cellulitis, sepsis, right lower extremity superficial thrombosis, hypokalemia, acute kidney injury, thrombocytopenia, cirrhosis, wheezing Discharge Exam General Appearance: Awake, alert & oriented, comfortable in general, NAD. CV: +S1S2 RRR, no murmur. Pulm: Clear to auscultation throughout. Abdomen: +BS, soft, non-tender. Most likely obese habitus. Abdomen is not tense and no palpable fluid wave. Extremities: There are chronic skin changes on the bilateral distal lower extremities. The right leg beginning about one third down the tibia and proceeding distally has a more notable diffuse erythema and warmth. The general right leg distal to the knee appears notably more edematous as well. The warm areas are mildly tender to palpation. Neuro: No gross neuro deficits. Discharge Data Allergies Allergy/AdvReac Type Severity Reaction Status Date / Time OC SPRAY AdvReac Unknown Unknown Uncoded 07/20/19 23:37 Consultations 07/21/19 00:24 ED Decision to Admit Stat Ordered Studies 07/20/19 22:30 CT angio chest PE protocol Stat IMPRESSION: 1. No pulmonary emboli identified although exam mildly compromised by respir atory motion. 2. No acute findings within the chest. 3. Trace bilateral pleural effusions versus pleural thickening. Bilateral lower lobe atelectasis with no consolidation to suggest pneumonia. 4. Cirrhosis. 07/24/19 13:42 US venous doppler LE RT Routine IMPRESSION: 1. No sonographic evidence of deep venous thrombosis. 2. Long segment superficial venous thrombus as above. 07/22/2019 CXR IMPRESSION: Cardiomegaly. Pulmonary vascular congestion has improved from yesterday. Hospital Course (1) Cellulitis of right lower extremity: 78-year-old male was admitted on 21 July 2019 after complaining of right lower extremity pain and erythema. Sepsis, right lower extremity cellulitis: Initially febrile, tachycardic, with an elevated lactate. Source thought to be his right lower extremity cellulitis. He was given doses of Zosyn and vancomycin in the ED, briefly on ceftriaxone as an outpatient, but recommended downgrade to Keflex as an outpatient. - Recommend cephalexin 500 mg 4 times daily for completion on July 31. - If worsening, could consider change to doxycycline. Right lower extremity superficial thrombosis: During his hospital stay the lower two thirds aspect of his right randle/calf was noted to be more edematous. On July 24, venous Doppler study was obtained which showed no evidence of DVT but did show evidence of a greater than 5 cm in length long segment superficial venous thrombus. - Patient is already on Coumadin for his chronic lower extremity DVT. Chronic lower extremity DVT: Is normally on Coumadin. While an inpatient his INR has varied between admit level of 3.9, down to 1.7, and most recently 2.4 on . Hypokalemia: Potassium is low as 3.3. Replaced. Acute kidney injury: Admit creatinine 1.44, now resolved to 0.99 after IVF. Likely prerenal in origin. Thrombocytopenia: Platelets as low as 102. No known recent history of bleeding. On discharge, improved to 130. Cirrhosis: Seen on CTA chest. There is no mention of this in the provided present medical record. Admission LFTs and ammonia level were normal. Abdomen seems a little distended but does not have a palpable fluid wave consistent with ascites. No reported abdominal pain. Do not believe he has SBP at present. Wheezing: Noted as inpatient, likely more inflammatory than infectious. 01Feb single view chest x-ray read as Cardiomegaly with evidence of congestive failure. On scheduled duonebs. Started empirically on umeclidinium daily. Could consider outpatient PFTs. Ongoing medical issues: - CAD: Continue home aspirin, atenolol, and as needed nitroglycerin. - ? history of afib: Mentioned in [facility] record without context. Admit EKG was sinus tachycardia with an incomplete RBBB and a LAFB. - Hyperlipidemia: Continue home ezetimibe and pravastatin. - Alzheimer's disease: Records mentioned that patient tends to communicate intermittently at baseline. Continue home amantadine. Also has aripiprazole, rozerem, and Vistaril. Code status: Conditional code. Requests ACLS, chest compressions, and defibrillation. Does not wish to have artificial ventilation or intubation. (2) Sepsis: (3) Superficial thrombosis of right lower extremity: (4) DVT, lower extremity: (5) Supratherapeutic INR: (6) Hypokalemia: (7) Acute kidney injury: (8) Thrombocytopenia: (9) Cirrhosis: (10) Wheezing: (11) Coronary artery disease: (12) Hyperlipidemia: (13) Alzheimer disease: Total Time Total Time Spent Total Time Spent (In Minutes): > 30 min Discharge Plan Discharge Items [facility] Reason For Visit: SEPSIS, CELLULITIS Discharge Diagnosis: Right lower extremity cellulitis, sepsis, superficial thrombosis. Activity: Per Instructions section Non-emergency contact: Primary Care Provider Call non-emergency contact if: you have any medication questions Follow-up/Referrals: Penny MAK [Primary Care Provider] - Diet: Heart Healthy Addtl Attending Provider Instructions: You were admitted to the hospital in July 21, 2019 due to your right leg being painful and red. While in the hospital, we treated you for an infection of your leg called cellulitis. We also monitored a new superficial blood clot in your leg, your potassium and kidney issues, as well as some wheezing and discussion of possible cirrhosis. Please continue to follow-up with the [facility] for ongoing care of these issues. Pending Studies at Discharge: No Stand-Alone Forms: My [facility] Skilled Items Patient informed of condition?: Yes Discharge Level of Care: Other Communicable Disease: No Discharge Prognosis: Stable Lines: None Urinary Catheter: No Medications and DC Order Prescriptions: New cephalexin 500 mg Capsule 500 mg PO QID 6 Days Qty: 24 RF: 0 Incruse Ellipta 62.5 mcg/actuation Blister With Device 1 puff inhalation QAM 30 Days Qty: 1 RF: 0 Continued hydroxyzine pamoate [Vistaril] 50 mg Capsule 50 mg PO HS RF: 0 aspirin [Aspirin Low Dose] 81 mg Tablet,Delayed Release (Dr/Ec) 81 mg PO DAILY RF: 0 pravastatin 80 mg Tablet 80 mg PO HS RF: 0 warfarin 2 mg Tablet 2 mg PO HS RF: 0 nitroglycerin 0.4 mg Tablet, Sublingual 0.4 mg sublingual DIRECTED PRN (Reason: Chest Pain) RF: 0 hydroxyzine pamoate [Vistaril] 25 mg Capsule 25 mg PO DAILY RF: 0 ezetimibe 10 mg Tablet 10 mg PO DAILY RF: 0 aripiprazole 5 mg Tablet 5 mg PO DAILY RF: 0 memantine 10 mg Tablet 10 mg PO BID RF: 0 ramelteon [Rozerem] 8 mg Tablet 8 mg PO HS RF: 0 atenolol 25 mg Tablet 12.5 mg PO DAILY RF: 0 docusate sodium 100 mg Capsule 100 mg PO DAILY RF: 0 magnesium hydroxide [Milk of Magnesia] 400 mg/5 mL Suspension 30 ml PO DAILY PRN (Reason: Constipation) RF: 0 [place] [facility] Sin[facility] 2.65 % Aerosol,[place] 2.65 % INTRANASAL BID PRN (Reason: Unknown) RF: 0 Discontinued acetaminophen 325 mg Tablet 650 mg PO TID RF: 0 sulfamethoxazole-trimethoprim [Bactrim DS] 800-160 mg Tablet 1 tab PO BID RF: 0 Discharge Orders: Discharge Order (Routine); Ordered 07/25/19 Ordered By: Mike Ledesma/Other Patient Handouts: What to Know When TakingWarfarin, Warfarin tablets Admission Data Admit Date/Time: 07/21/19 00:47 Attending Provider: Bassam Abdi Admit Provider: Perfecto Heller Primary Care Provider: Penny MAK Other Providers: Perfecto Heller ; Brook Malone Other Interventions: Discharge Summary Assessment (RN) Last Done: 07/25/19 15:16 DC Date/Time DO NOT enter until pt leaves facility: 07/25/19 17:10 Resident Activity Tracking Resident Involvement: Resident Care Provided Care Provided: Adult [facility] Medicine
[2019-07-25] MEDS: WARFARIN SOD 2 MG TAB PO SCH (15:41)
--- NOTE | 2019-07-25 18:17 | Discharge Summary ---
Date of Service July 25, 2019 Admission HPI Per Admitting Provider 78 y/o male with dementia presented to the ED with complaint of right lower extremity pain and erythema. He awakens to verbal, but is not communicating or answering questions. The care home guards report that the patient communicates intermittently as a baseline, however today he has been much less verbal. He did have temp elevation to 101F at the care home today. Admission Exam Per Admitting Provider General- adult male awakens to verbal, makes eye contact, but not verbalizing. Head- atraumatic Eyes- PERRL, EOMI, anicteric ENT- oropharynx clear Neck- supple, no JVD, no adenopathy, no thyromegaly. Lungs- CTA b/l no R/R/W Heart- regular rhythm; no murmur, no gallop, no rub appreciated Abdomen- normal bowel sounds, soft, nontender. Extremities- Non-pitting edema right leg with erythema from ankle to mid lower leg, + tenderness to touch with heat production. Left leg shows mild edema and less erythema when compared to right. Neuro- alert, orientation not able to assess; PERRL, EOMI; Non-focal. 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 Skin- See ext. exam. No rashes. Principal Diagnosis Right lower extremity cellulitis, superficial venous thrombosis Discharge Exam General: Oriented to name, only. No acute distress. Cooperative. HEENT: Atraumatic, normocephalic. Pulm: Mild expiratory wheezes, improved from prior. No rales. Symmetrical chest rise. No increase work of breathing. No respiratory distress. Cardiac: RRR, -mrg. Radial pulses intact and symmetrical. Abdominal: Soft, nontender. Extremity: Right lower extremity with pitting edema, warmth, and erythema to the knee. Scattered petechiae present. Left lower extremity without pitting edema, warmth, or erythema. PT pulse intact. Discharge Data Allergies Allergy/AdvReac Type Severity Reaction Status Date / Time OC SPRAY AdvReac Unknown Unknown Uncoded 07/20/19 23:37 Consultations 07/21/19 00:24 ED Decision to Admit Stat Ordered Studies 07/20/19 22:30 CT angio chest PE protocol Stat 07/24/19 13:42 US venous doppler LE RT Routine Hospital Course (1) Cellulitis of right lower extremity: Zeeshan is a 78-year-old male admitted for right lower extremity pain and erythema and who was treated for right lower extremity cellulitis complicated by a superficial venous thrombosis with phlebitis. Right lower extremity cellulitis with superficial venous thrombosis & phlebitis Zeeshan presented with right leg pain and who was found to be febrile, tachypneic, and with an elevated lactate of 3.5 on admission. He was admitted for sepsis due to cellulitis and was started on empiric Rocephin with vancomycin. He was transitioned to Rocephin but narrowed to Keflex, but failed to clinically improve and had questionable worsening so was placed back on Rocephin and doxycycline. He had worsening leg edema so lower extremity Dopplers were obtained which showed no deep vein thromboses, but evidence of superficial venous thrombosis with phlebitis contributing to his pain and swelling. He was on warfarin therapy as noted below, his INR returned to therapeutic levels and he was continued on anticoagulation. He was narrowed back to Keflex and discharged with follow-up at [facility]. His case was discussed with the [facility] physician who would assess his lower extremity on return, and if he did not show significant improvement in the next day or 2 would broaden his antibiotic coverage from Keflex. History of chronic lower extremity DVT Patient was on warfarin anticoagulation for chronic lower extremity DVT and was found to be supratherapeutic during admission in the setting of antibiotics. His Coumadin was held for 2 days, INR decreased to 1.7 at which point Coumadin was restarted and he returned to therapeutic levels. He was noted to have a superficial thrombosis and phlebitis on Doppler as noted above, no right lower extremity DVT was appreciated. He was discharged to follow-up at [facility]. Wheezing, dyspnea Zeeshan reported a long history of smoking and wheezing, he was not on any controlling inhalers prior to admission. His wheezing and intermittent shortness of breath improved with duo nebs and albuterol as needed. Given his history of tobacco abuse and wheezes there is high clinical suspicion for COPD and he was started on daily Spiriva 18 mcg with follow-up to [facility]. Acute kidney injury Zeeshan had an elevated creatinine on admission which resolved following fluid hydration and antibiotic treatment, and which was felt to be prerenal in origin. Alzheimer's dementia Patient has a history of Alzheimer's dementia and communicates intermittently at baseline. He inconsistently seems to understand information expressed to him, but overall was operative during his hospitalization was able to complete review of systems semi-reliably. He was continued on amantadine, aripiprazole, rostrum, and Vistaril during admission. 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 Cirrhosis was appreciated on CTA of the chest. LFTs and ammonia levels were normal. He did not show signs of SBP or ascites during admission. He was discharged to follow-up at [facility]. Coronary artery disease He was continued on his prior to admission aspirin, atenolol, and nitro as needed. He did not need any nitroglycerin during admission. History of A. fib Zeeshan has a history of A. fib. He is on warfarin anticoagulation as above. EKG during admission showed sinus tachycardia with right bundle branch block. He did not have any A. fib or RVR during admission. Hyperlipidemia Zeeshan was continued on ease a team but and pravastatin during admission. (2) Superficial thrombosis of right lower extremity: (3) Fever: (4) Atherosclerotic heart disease: (5) Hyperlipidemia: (6) Cirrhosis: (7) Coronary artery disease: (8) Wheezing: Total Time Total Time Spent Total Time Spent (In Minutes): <30 Discharge Plan Discharge Items [facility] Reason For Visit: SEPSIS, CELLULITIS Discharge Diagnosis: Right lower extremity cellulitis, sepsis, superficial thrombosis. Activity: Per Instructions section Non-emergency contact: Primary Care Provider Call non-emergency contact if: you have any medication questions Follow-up/Referrals: Penny MAK [Primary Care Provider] - Diet: Heart Healthy Addtl Attending Provider Instructions: You were admitted to the hospital in July 21, 2019 due to your right leg being painful and red. While in the hospital, we treated you for an infection of your leg called cellulitis. We also monitored a new superficial blood clot in your leg, your potassium and kidney issues, as well as some wheezing and discussion of possible cirrhosis. Please continue to follow-up with the care home medical system for ongoing care of these issues. Pending Studies at Discharge: No Stand-Alone Forms: My [facility] Skilled Items Patient informed of condition?: Yes Discharge Level of Care: Other Communicable Disease: No Discharge Prognosis: Stable Lines: None Urinary Catheter: No Medications and DC Order Prescriptions: New cephalexin 500 mg Capsule 500 mg PO QID 6 Days Qty: 24 RF: 0 Incruse Ellipta 62.5 mcg/actuation Blister With Device 1 puff inhalation QAM 30 Days Qty: 1 RF: 0 Continued hydroxyzine pamoate [Vistaril] 50 mg Capsule 50 mg PO HS RF: 0 aspirin [Aspirin Low Dose] 81 mg Tablet,Delayed Release (Dr/Ec) 81 mg PO DAILY RF: 0 pravastatin 80 mg Tablet 80 mg PO HS RF: 0 warfarin 2 mg Tablet 2 mg PO HS RF: 0 nitroglycerin 0.4 mg Tablet, Sublingual 0.4 mg sublingual DIRECTED PRN (Reason: Chest Pain) RF: 0 hydroxyzine pamoate [Vistaril] 25 mg Capsule 25 mg PO DAILY RF: 0 ezetimibe 10 mg Tablet 10 mg PO DAILY RF: 0 aripiprazole 5 mg Tablet 5 mg PO DAILY RF: 0 memantine 10 mg Tablet 10 mg PO BID RF: 0 ramelteon [Rozerem] 8 mg Tablet 8 mg PO HS RF: 0 atenolol 25 mg Tablet 12.5 mg PO DAILY RF: 0 docusate sodium 100 mg Capsule 100 mg PO DAILY RF: 0 magnesium hydroxide [Milk of Magnesia] 400 mg/5 mL Suspension 30 ml PO DAILY PRN (Reason: Constipation) RF: 0 [place] Allergy and Sinus 2.65 % Aerosol,[place]edham 2.65 % INTRANASAL BID PRN (Reason: Unknown) RF: 0 Discontinued acetaminophen 325 mg Tablet 650 mg PO TID RF: 0 sulfamethoxazole-trimethoprim [Bactrim DS] 800-160 mg Tablet 1 tab PO BID RF: 0 Discharge Orders: Discharge Order (Routine); Ordered 07/25/19 Ordered By: Mike Ledesma/Other Patient Handouts: What to Know When TakingWarfarin, Warfarin tablets Admission Data Admit Date/Time: 07/21/19 00:47 Attending Provider: Bassam Abdi Admit Provider: Perfecto Heller Primary Care Provider: Penny MAK Other Providers: Perfecto Heller ; Brook Malone Other Interventions: Discharge Summary Assessment (RN) Last Done: 07/25/19 15:16 DC Date/Time DO NOT enter until pt leaves facility: 07/25/19 17:10 Supervising Physician Co-Signing Physician Notes I personally examined the patient and verified all amezcua points of history and exam, discussed case, and agree with decision making with Dr Stevenson. Seems to be feeling okay. Very limited historian. No new complaints. Vitals noted, in general he is awake and alert pleasant no distress. HEENT normocephalic atraumatic mucous membranes are moist. Breathing unlabored no accessory muscle use good effort. LE erythema did not expand, less tender, more dull red than yesterday. Lower extremity cellulitis complicated by extensive superficial phlebitiscontinue keflex (dw care home doc - he will continue to follow daily and if anything were to worsen then they can re-escalate to PO cefdinir vs augmentin - but unlikely to be needed), continue Coumadin (now therapeutic), does appear slowly improving. close outpt f/u (again d/w care home physician who will have pt come to [facility] and follow daily) Otherwise as above Resident Activity Tracking Resident Involvement: Resident Care Provided Care Provided: Adult Hospital Medicine
--- NOTE | 2019-07-25 19:23 | Billing Data ---
Date of Service July 25, 2019 Coding Level of Care Code D/C Day Management <30 mins
== END 2019-07-25 17:10 | DRG 872 ==
LOC: ED 21:14 → SUATTDRO 07-21 00:47 → 2S 07-21 00:47 → 3W 07-23 11:36

== ENCOUNTER 2020-01-06 14:24 | Inpatient (IN) ==
--- NOTE | 2020-01-06 14:38 | Emergency Department Note ---
Impression & Plan Heat exposure, Hyperthermia, Hypocalcemia ED Provider Note NAME: PHILIPPE Wheat [id number] NISPEL AGE: 79 SEX: M : 1940 ARRIVES VIA: Ambulance INFORMANT: Patient, ED PROVIDER(S): Guillermo Hernandez MD Chief Complaint: Fever HPI: Patient reportedly was found in the cell which was hot and the fan was on. The patient had stable vitals with the exception of a temperature 104. Patient is poor historian at baseline. The patient reportedly had a cell room temperature in the 120s per nursing report. The patient denies any chest pains, shortness of breath. There was initial report about the possibility of being hypoxic in route but the patient is currently satting on room air at 93%. The patient denies any pain. The patient denies any nausea vomiting. No known COVID cases per the skilled nursing guards. History is somewhat limited limited secondary to the patient's known history of dementia but the patient denies a cute symptomatic complaints at this time. Patient did already receive IV fluids 500 cc prior to arrival. ROS: See HPI for pertinent positives and negatives. A total of 10 systems were reviewed and otherwise negative. May be somewhat unreliable given the patient's known history of dementia. Past medical history: See below Surgical history: See below Social history: See below Physical Exam: GENERAL: Flushed appearance, NAD, non-toxic. EYE EXAM: Normal conjunctiva. PERRL, no anisocoria and EOM's grossly intact w/o pain. OROPHARYNX: Dry mucus membranes. Edentulous. NECK: Supple, no nuchal rigidity, no adenopathy, non-tender. No signs of meningismus. Non-stridulous. LUNGS: Slight wheezing noted. Normal chest wall mechanics. HEART: NSR, no MRG. ABDOMEN: Abdomen soft, mildly distended but soft, non-tender to palpation, normo-active bowel sounds, no masses, no rebound or guarding. BACK: No CVA TTP. SKIN: No rashes and no bruising. You: Circumcised without any redness swelling or crepitus of the perineum or scrotum. No penile pain or swelling. UPPER EXTREMITIES: Upper extremities are grossly normal. LOWER EXTREMITIES: Grossly normal, no edema. NEURO EXAM: Awake alert does follow basic commands including squeezing hands and moving toes. Cranial nerves II-XII grossly intact, no obvious dysarthria, moves all 4 extremities on command. Differential diagnoses: Viral syndrome, otitis, pharyngitis, pneumonia, influenza, meningitis, urinary tract infection, sepsis, bacteremia, as well as other pathologies. Course: Patient was seen and evaluated the bedside. Full history physical exam was performed. EKG: Location: Fever Sinus rhythm with first-degree block, rate of 81, prolonged MT, normal QRS and QT, left axis deviation. When comparison from July 20, 2019 incomplete right bundle no longer present. Imaging Studies: Radiology results as stated below per my review in the radiologist's interpretation: XR chest 1V portable CLINICAL HISTORY: Sepsis. COMPARISON STUDY: Chest CT July 20, 2019. Chest radiograph July 22, 2019. FINDINGS: Cardiomegaly is noted. There is pulmonary vascular congestion with suspected mild pulmonary edema. Mild bibasilar opacities favor atelectasis. There is no pneumothorax. Suspected trace bilateral pleural effusions are noted. IMPRESSION: 1. Pulmonary vascular congestion with suspected mild pulmonary edema. 2. Probable trace bilateral pleural effusions. ACT 112: Negative or not required by law. Electronically signed by: Pramod Peraza M.D. 01/06/2020 3:09 PM Dictated: 01/06/20 1508 Transcribed: 01/06/20 1508 Cardiac monitoring: An order was placed for continuous cardiac monitoring. The monitor shows a rate of 83 with sinus rhythm. MDM: Patient did present with concern for fever. The patient does present from [facility]. Blood work was obtained was given IV fluids and Tylenol was given. Did already receive 500 cc bolus in route. The patient's temperature did mildly improve. The patient does not appear to be suffering from neuroleptic malignant syndrome. The patient's chest x-ray does show some possible pulmonary edema. The patient's exposure in fever as well as the patient does not appear overly volume overloaded I believe would benefit from the fluids at this time. The patient also did have a mild lactic acidosis. T bili is 1.4 but this may be hemo-delusional. The patient does not have any right upper quadrant pain and no reported vomiting. Troponin is undetectable. Pro-Davonte is not elevated. The patient is currently therapeutic with his anticoagulation at 2.5. Patient is white count of 10.8 with a normal H&H and platelet count. I did speak with the on-call hospitalist who agreed to further evaluate treat the patient. Patient was admitted to the medicine service. Past Med/Surg History Medical History 1st degree AV block Alzheimer disease Anemia Anxiety Atherosclerotic heart disease CORONARY ARTERY Atrial fibrillation DVT, lower extremity (Resolved) Hyperlipidemia Hypertension Intellectual disability Neurocognitive disorder Osteoarthritis Stented coronary artery (Chronic 04/17/11) Supratherapeutic INR (Acute) Transient ischemic attack (TIA) Surgical History History of cataract surgery Family History Other Family history non-contributory Social History Preferred Language: Bahraini Communication Ability: Impaired Safety Deposit Clerk Required: No Beliefs That Will Affect Care: None marital status: Current Living Situation: Other Current Living Situation Comment: [facility] Feels Safe at Home: Yes Smoking Status: Unknown if ever smoked Hx Alcohol Use: No Hx Substance Use: No Allergies Allergies Allergy/AdvReac Type Severity Reaction Status Date / Time No Known Drug Allergies Allergy Unknown Unverified 01/06/20 15:43 OC SPRAY AdvReac Unknown Unknown Uncoded 07/20/19 23:37 Home Meds Home Medications Medication Instructions Recorded Confirmed aripiprazole 5 mg PO DAILY 01/06/20 01/06/20 aspirin [Aspirin Low Dose] 81 mg PO DAILY 01/06/20 01/06/20 atenolol 12.5 mg PO DAILY 01/06/20 01/06/20 docusate sodium 100 mg PO DAILY 01/06/20 01/06/20 ezetimibe 10 mg PO DAILY 01/06/20 01/06/20 hydroxyzine pamoate 25 mg PO DAILY 01/06/20 01/06/20 hydroxyzine pamoate 50 mg PO HS 01/06/20 01/06/20 magnesium hydroxide [Milk of 30 ml PO DAILY PRN 01/06/20 01/06/20 Magnesia] memantine 10 mg PO BID 01/06/20 01/06/20 multivitamin with iron 1 tab PO DAILY 01/06/20 01/06/20 nitroglycerin 0.4 mg SUBLINGUAL UD PRN 01/06/20 01/06/20 pravastatin 80 mg PO 01/06/20 01/06/20 ramelteon 8 mg PO 01/06/20 01/06/20 warfarin 2.5 mg PO 01/06/20 01/06/20 Results & Data (ED) Vital Signs Vital Signs - 24 hr 01/06/20 14:25 01/06/20 14:41 01/06/20 15:34 Temperature 40.2 C H 39.5 C H Temperature Source Rectal Oral Pulse Rate 94 H Pulse Rate [Right Finger] 95 H 93 H Respiratory Rate 29 H 26 H 37 H Respiratory Effort / Characteristics Blood Pressure 124/65 Blood Pressure [Right Arm] 146/89 H 130/71 Blood Pressure Mean 84 Blood Pressure Mean [Right Arm] 108 90 Pulse Oximetry 93 93 93 Oxygen Delivery Method Room Air Room Air Sepsis Recent Fever Within 48 Hours Yes Sepsis New/Unexplained Change in Mental Status Yes Sepsis Action Taken by Nursing Physician Notified 01/06/20 16:11 01/06/20 16:31 01/06/20 16:59 Temperature 39.5 C H 37.7 C H Temperature Source Oral Oral Pulse Rate Pulse Rate [Right Finger] 80 Respiratory Rate 29 H Respiratory Effort / Characteristics Blood Pressure Blood Pressure [Right Arm] 132/64 Blood Pressure Mean Blood Pressure Mean [Right Arm] 86 Pulse Oximetry 93 Oxygen Delivery Method Room Air Sepsis Recent Fever Within 48 Hours Sepsis New/Unexplained Change in Mental Status Sepsis Action Taken by Nursing 01/06/20 17:00 01/06/20 18:16 01/06/20 18:26 Temperature 36.8 C Temperature Source Oral Pulse Rate Pulse Rate [Right Finger] 76 72 76 Respiratory Rate 26 H 31 H 22 Respiratory Effort / Characteristics Non-Labored Spontaneous Blood Pressure Blood Pressure [Right Arm] 125/68 152/90 H Blood Pressure Mean Blood Pressure Mean [Right Arm] 87 110 Pulse Oximetry 92 96 96 Oxygen Delivery Method Room Air Room Air Room Air Sepsis Recent Fever Within 48 Hours Sepsis New/Unexplained Change in Mental Status Sepsis Action Taken by Nursing 01/06/20 18:31 Temperature Temperature Source Pulse Rate Pulse Rate [Right Finger] Respiratory Rate Respiratory Effort / Characteristics Blood Pressure Blood Pressure [Right Arm] Blood Pressure Mean Blood Pressure Mean [Right Arm] Pulse Oximetry Oxygen Delivery Method Room Air Sepsis Recent Fever Within 48 Hours Sepsis New/Unexplained Change in Mental Status Sepsis Action Taken by Long-Term Medications Current Medication List: was personally reviewed by me Laboratory Data Attestation: I reviewed the patient's lab results. Result diagrams: 01/06/20 15:48 01/06/20 15:48 Lab Results 01/06/20 01/06/20 01/06/20 Range/Units 15:48 15:48 15:48 WBC 10.81 H (4.8-10.8) K/uL RBC 4.86 (4.7-6.1) M/uL Hgb 16.3 (14.0-18.0) g/dL Hct 46.9 (42-52) % MCV 96.5 (80-100) fL MCH 33.5 (25-34) pg MCHC 34.8 (32-36) g/dL RDW Std Deviation 51.6 H (36.4-46.3) fL RDW Coeff of Tamara 14.6 H (11.5-14.5) % Plt Count 130 (130-400) K/uL MPV 10.0 (7.4-10.4) fL Immature Gran % (Auto) 0.2 % Neut % (Auto) 86.6 % Lymph % (Auto) 5.6 % Jennings % (Auto) 7.4 % Eos % (Auto) 0.1 % Baso % (Auto) 0.1 % Neut # (Auto) 9.36 H (1.4-6.5) K/uL Lymph # (Auto) 0.61 L (1.2-3.4) K/uL Jennings # (Auto) 0.80 H (0.11-0.59) K/uL Eos # (Auto) 0.01 (0-0.5) K/uL Baso # (Auto) 0.01 (0-0.2) K/uL Immature Gran # (Auto) 0.02 (0.00-0.02) K/uL PT 25.3 H (9.0-12.0) Seconds INR 2.5 H (0.9-1.1) APTT 38.3 H (21.0-31.0) Seconds PTT Ratio 1.4 Sodium 136 (136-145) mmol/L Potassium 4.2 (3.5-5.1) mmol/L Chloride 105 (98-107) mmol/L Carbon Dioxide 25 (21-32) mmol/L Anion Gap 6.0 (3-11) BUN 20 H (7-18) mg/dl Creatinine 1.28 (0.6-1.4) mg/dl Est Cr Clr Drug Dosing Not Reportable Est GFR ( Amer) 62.2 Est GFR (Non-Af Amer) 53.6 BUN/Creatinine Ratio 15.2 (10-20) Glucose 123 H (70-99) mg/dl Lactate (0.4-2.0) mmol/L Calcium 8.4 L (8.5-10.1) mg/dl Magnesium 2.2 (1.8-2.4) mg/dl Total Bilirubin 1.4 H (0.2-1) mg/dl AST 23 (15-37) U/L ALT 32 (12-78) U/L Alkaline Phosphatase 86 (45-117) U/L Total Creatine Kinase 65 (39-308) U/L Troponin I < 0.015 (0-0.045) ng/ml Total Protein 8.4 H (6.4-8.2) gm/dl Albumin 3.8 (3.4-5.0) gm/dl Globulin 4.6 H (2.5-4.0) gm/dl Albumin/Globulin Ratio 0.8 L (0.9-2) Procalcitonin (0-0.5) ng/ml 01/06/20 01/06/20 01/06/20 Range/Units 15:48 15:48 18:01 WBC (4.8-10.8) K/uL RBC (4.7-6.1) M/uL Hgb (14.0-18.0) g/dL Hct (42-52) % MCV (80-100) fL MCH (25-34) pg MCHC (32-36) g/dL RDW Std Deviation (36.4-46.3) fL RDW Coeff of Tamara (11.5-14.5) % Plt Count (130-400) K/uL MPV (7.4-10.4) fL Immature Gran % (Auto) % Neut % (Auto) % Lymph % (Auto) % Jennings % (Auto) % Eos % (Auto) % Baso % (Auto) % Neut # (Auto) (1.4-6.5) K/uL Lymph # (Auto) (1.2-3.4) K/uL Jennings # (Auto) (0.11-0.59) K/uL Eos # (Auto) (0-0.5) K/uL Baso # (Auto) (0-0.2) K/uL Immature Gran # (Auto) (0.00-0.02) K/uL PT (9.0-12.0) Seconds INR (0.9-1.1) APTT (21.0-31.0) Seconds PTT Ratio Sodium (136-145) mmol/L Potassium (3.5-5.1) mmol/L Chloride (98-107) mmol/L Carbon Dioxide (21-32) mmol/L Anion Gap (3-11) BUN (7-18) mg/dl Creatinine (0.6-1.4) mg/dl Est Cr Clr Drug Dosing Est GFR ( Amer) Est GFR (Non-Af Amer) BUN/Creatinine Ratio (10-20) Glucose (70-99) mg/dl Lactate 2.5 H* 2.1 H* (0.4-2.0) mmol/L Calcium (8.5-10.1) mg/dl Magnesium (1.8-2.4) mg/dl Total Bilirubin (0.2-1) mg/dl AST (15-37) U/L ALT (12-78) U/L Alkaline Phosphatase (45-117) U/L Total Creatine Kinase (39-308) U/L Troponin I (0-0.045) ng/ml Total Protein (6.4-8.2) gm/dl Albumin (3.4-5.0) gm/dl Globulin (2.5-4.0) gm/dl Albumin/Globulin Ratio (0.9-2) Procalcitonin 0.19 (0-0.5) ng/ml Administered Medications Discontinued Medications Albuterol (Duoneb) 3 ml NEB NOW STA Stop: 01/06/20 18:24 Last Admin: 01/06/20 18:26 Dose: 3 ml Documented by: [id number] Sodium Chloride (Nss 1000ml) 1,000 mls @ 999 mls/hr IV .Q1H1M PRISCA Stop: 01/06/20 15:50 Last Infusion: 01/06/20 16:00 Dose: 0 mls/hr Documented by: [id number] Admin: 01/06/20 15:00 Dose: 999 mls/hr Documented by: [id number] Sodium Chloride (Nss 1000ml) 500 mls @ 999 mls/hr IV .Q31M PRSICA Stop: 01/06/20 16:49 Last Infusion: 01/06/20 16:15 Dose: 0 mls/hr Documented by: [id number] Admin: 01/06/20 15:44 Dose: 999 mls/hr Documented by: [id number] Acetaminophen (Ofirmev) 65 mls @ 200 mls/hr IV NOW ONE; Protocol Stop: 01/06/20 15:09 Last Infusion: 01/06/20 16:04 Dose: 0 mls/hr Documented by: [id number] Admin: 01/06/20 15:44 Dose: 200 mls/hr Documented by: [id number] Discharge Plan Visit Data Chief Complaint: Illness ED Provider: Guillermo Hernandez Discharge Problem: Heat exposure, Hyperthermia, Hypocalcemia Discharge Instructions Interventions: ED Discharge Assessment Last Done: 01/06/20 18:31 Forms Stand Alone Forms: [facility] [employer] Prescriptions Prescriptions: No Action atenolol 25 mg Tablet 12.5 mg PO DAILY RF: 0 hydroxyzine pamoate 50 mg Capsule 50 mg PO HS RF: 0 warfarin 2.5 mg Tablet 2.5 mg PO HS RF: 0 aspirin [Aspirin Low Dose] 81 mg Tablet,Delayed Release (Dr/Ec) 81 mg PO DAILY RF: 0 pravastatin 80 mg Tablet 80 mg PO HS RF: 0 magnesium hydroxide [Milk of Magnesia] 400 mg/5 mL Suspension 30 ml PO DAILY PRN (Reason: Constipation) RF: 0 nitroglycerin 0.4 mg Tablet, Sublingual 0.4 mg sublingual UD PRN (Reason: Chest Pain) RF: 0 docusate sodium 100 mg Capsule 100 mg PO DAILY RF: 0 hydroxyzine pamoate 25 mg Capsule 25 mg PO DAILY RF: 0 multivitamin with iron Tablet 1 tab PO DAILY RF: 0 ezetimibe 10 mg Tablet 10 mg PO DAILY RF: 0 aripiprazole 5 mg Tablet 5 mg PO DAILY RF: 0 memantine 10 mg Tablet 10 mg PO BID RF: 0 ramelteon 8 mg Tablet 8 mg PO HS RF: 0 Referrals Referrals: Penny MAK [Primary Care Provider] - Discharge Problem: Heat exposure Qualifiers: Encounter type: initial encounter Qualified Code(s): T67.9XXA - Effect of heat and light, unspecified, initial encounter
[2020-01-06] MEDS ORDERED: ACETAMINOPHEN 65 ML IV ONE (14:50)
[2020-01-06] MEDS ORDERED: SODIUM CHLORIDE 0.9% 1000ML 1,000 ML IV SCH (15:00)
--- NOTE | 2020-01-06 15:10 | XRay Report ---
XR chest 1V portable CLINICAL HISTORY: Sepsis. COMPARISON STUDY: Chest CT July 20, 2019. Chest radiograph July 22, 2019. FINDINGS: Cardiomegaly is noted. There is pulmonary vascular congestion with suspected mild pulmonary edema. Mild bibasilar opacities favor atelectasis. There is no pneumothorax. Suspected trace bilater al pleural effusions are noted. IMPRESSION: 1. Pulmonary vascular congestion with suspected mild pulmonary edema. 2. Probable trace bilateral pleural effusions. ACT 112: Negative or not required by law. Electronically signed by: Pramod Peraza M.D. 01/06/2020 3:09 PM
[2020-01-06] MEDS: SODIUM CHLORIDE 0.9% 1000ML 500 ML IV SCH ×2 (15:44→19:48)
[2020-01-06 16:09] LABS: Basophils # (auto) 0.01 K/uL (0-0.2); Basophils % (auto) 0.1 %; Eosinophils # (auto) 0.01 K/uL (0-0.5); Eosinophils % (auto) 0.1 %; Hematocrit (blood only) 46.9 % (42-52); Hemoglobin 16.3 g/dL (14.0-18.0); Immature Granulocytes # (auto) 0.02 K/uL (0.00-0.02); Immature Granulocytes % (auto) 0.2 %; Lymphocytes # (auto) 0.61 K/uL (1.2-3.4); Lymphocytes % (auto) 5.6 %; Mean Corpuscular Hemoglobin 33.5 pg (25-34); Mean Corpuscular Hgb Conc 34.8 g/dL (32-36); Mean Corpuscular Volume 96.5 fL (80-100); Monocytes % (auto) 7.4 %; Neutrophils # (auto) 9.36 K/uL (1.4-6.5); Neutrophils % (auto) 86.6 %; Platelet Count 130 K/uL (130-400); RDW Coefficient of Variation 14.6 % (11.5-14.5); RDW Standard Deviation 51.6 fL (36.4-46.3); Red Blood Count 4.86 M/uL (4.7-6.1); White Blood Count 10.81 K/uL (4.8-10.8)
[2020-01-06 16:25] LABS: Alanine Aminotransferase 32 U/L (12-78); Albumin Level 3.8 gm/dl (3.4-5.0); Aspartate Aminotransferase 23 U/L (15-37); BUN Creatinine Ratio 15.2 (10-20); Blood Urea Nitrogen 20 mg/dl (7-18); Calcium 8.4 mg/dl (8.5-10.1); Carbon Dioxide 25 mmol/L (21-32); Chloride 105 mmol/L (98-107); Est GFR (African American) 62.2; Est GFR (Non-African American) 53.6; Glucose 123 mg/dl (70-99); Magnesium 2.2 mg/dl (1.8-2.4); Potassium 4.2 mmol/L (3.5-5.1); Sodium 136 mmol/L (136-145)
[2020-01-06 16:29] LABS: INR 2.5 (0.9-1.1); Partial Thromboplastin Ratio 1.4; Partial Thromboplastin Time 38.3 Seconds (21.0-31.0); Prothrombin Time 25.3 Seconds (9.0-12.0)
[2020-01-06 16:30] LABS: Albumin Globulin Ratio 0.8 (0.9-2); Alkaline Phosphatase 86 U/L (45-117); Bilirubin,Total 1.4 mg/dl (0.2-1); Creatine Kinase 65 U/L (39-308); Globulin 4.6 gm/dl (2.5-4.0); Total Protein 8.4 gm/dl (6.4-8.2); Troponin I < 0.015 ng/ml (0-0.045)
--- NOTE | 2020-01-06 17:41 | History & Physical Report ---
Date of Service January 06, 2020 Assessment & Plan (1) Hyperthermia: Fever is always concerning for infection, but I do not see focal infection at this time. No respiratory signs/symptoms or exposure that would indicate concern for Sars-CoV-2 infection or pneumonia. Skin changes all seem like c hronic changes; no heat, pain, tenderness, swelling to indicate acute cellulitis. Neuroleptic malignant syndrome is a possibility, but he has no rigidity to indicate this and appears to be nearly back to baseline with dantrolene or other treatment for this. - Follow blood cultures drawn by ED - Get UA/urinalysis as ordered by ED - Hold abx at this time - If his fever completely resolves, likely situational in nature. If fever returns, would consider starting empiric abx and consider coronavirus or further testing. Could consider psych/neuro if concern for NMS grows. (2) Coronary artery disease: No chest pain on presentation. No EKG indication of ischemia. - Continue ASA, beta-ranjeet, statin, ezetimibe (3) Hypertension: BP is 125/70 in the ED. - Continue beta-ranjeet (4) Atrial fibrillation: Paroxysmal. EKG on admission shows sinus rhythm with rate in the 80s. - Continue warfarin as below - Continue beta-ranjeet (5) Alzheimer disease: Long-standing. Per prior notes from 07/2019, he is only constantly AAOx1 ( self) which is true today. Apparently sometimes not even really able to give review of systems, though today he was able to do so. Appears to be at baseline. - Continue home meds (6) Wheezing: No official COPD diagnosis from what I can see. Has mild wheezing on exam which appears chronic. Denies shortness of breath. No maintenance inhalers on med list. - DuoNebs PRN (7) Cirrhosis: Per report, has a hx of heavy alcohol use. None presently. - Monitor (8) DVT, lower extremity: History of. Doppler in 07/2019 showed RLE superficial venous thrombus. - Continue warfarin - INR on admission was 2.5. History of Present Illness Primary Care Provider: [facility] 79yo M w/ hx of paroxysmal afib, HTN, and dementia who presents for hyperthermia. Reporting is all 2nd or 3rd hand as the patient has dementia and doesn't not know he is in the hospital or why he is here. Per report from the ED provider, the patient was found in his cell block with a temperature of 104. Someone reported the temperature in the room was upwards of 120 degrees. The guards with him during my interview report that the cell block where he is housed does not have a/c, and they are unsure if the inmates are provided fans. They agree that it is likely the temperature was >100 degrees in his cell, but find the 120 degree temperature to be surprisingly high. At present, the patient has no complaints. He denies any fevers/chills, shortness of breath, cough, nausea or vomiting, lightheadedness, or other complaints. Allergies Allergy/AdvReac Type Severity Reaction Status Date / Time No Known Drug Allergies Allergy Unknown Unverified 01/06/20 15:43 OC SPRAY AdvReac Unknown Unknown Uncoded 07/20/19 23:37 Home Medications Home Medications Medication Instructions Recorded Confirmed Type aripiprazole 5 mg PO DAILY 01/06/20 01/06/20 History aspirin [Aspirin Low Dose] 81 mg PO DAILY 01/06/20 01/06/20 History atenolol 12.5 mg PO DAILY 01/06/20 01/06/20 History docusate sodium 100 mg PO DAILY 01/06/20 01/06/20 History ezetimibe 10 mg PO DAILY 01/06/20 01/06/20 History hydroxyzine pamoate 25 mg PO DAILY 01/06/20 01/06/20 History hydroxyzine pamoate 50 mg PO HS 01/06/20 01/06/20 History magnesium hydroxide [Milk of 30 ml PO DAILY PRN 01/06/20 01/06/20 History Magnesia] memantine 10 mg PO BID 01/06/20 01/06/20 History multivitamin with iron 1 tab PO DAILY 01/06/20 01/06/20 History nitroglycerin 0.4 mg SUBLINGUAL UD PRN 01/06/20 01/06/20 History pravastatin 80 mg PO HS 01/06/20 01/06/20 History ramelteon 8 mg PO HS 01/06/20 01/06/20 History warfarin 2.5 mg PO HS 01/06/20 01/06/20 History Past Med/Surg History Medical History 1st degree AV block Alzheimer disease Anemia Anxiety Atherosclerotic heart disease CORONARY ARTERY Atrial fibrillation DVT, lower extremity (Resolved) Hyperlipidemia Hypertension Intellectual disability Neurocognitive disorder Osteoarthritis Stented coronary artery (Chronic 04/17/11) Supratherapeutic INR (Acute) Transient ischemic attack (TIA) Surgical History History of cataract surgery Family History Other Family history non-contributory Social History Preferred Language: Mohawk Communication Ability: Impaired Consultant Technology Required: No Beliefs That Will Affect Care: None marital status: Current Living Situation: Other Current Living Situation Comment: [facility] Inmate Feels Safe at Home: Yes Smoking Status: Unknown if ever smoked Hx Alcohol Use: No Hx Substance Use: No Review of Systems Review of Systems: All systems reviewed & are unremarkable except as noted in HPI & below Physical Exam Constitutional: WD/WN, vitals as above Eyes: EOM intact bilaterally; no conjunctival abnormality ENMT: external ear and nose normal, oropharynx normal Neck: trachea midline, no thyromegaly normal visual inspection Respiratory: normal respiratory effort, lungs clear to auscultation no respiratory distress Cardiovascular: RRR, no murmur, no edema Gastrointestinal (Abdomen): Inspection/Auscultation: abdomen normal to inspection; abdomen not distended Musculoskeletal: no cyanosis or clubbing, extremities motor strength 5/5 Skin: no rashes, warm and dry Neurologic: moves all extremities and awake Psychiatric: Orientation: alert, oriented to person and cooperative Results & Data Results & Data ([facility]) Vital Signs (Past 12 Hours) Vital Signs Temp Pulse Pulse Resp BP BP Pulse Ox 01/06/20 17:00 76 26 H 125/68 92 01/06/20 16:59 37.7 C H 01/06/20 16:31 80 29 H 132/64 93 01/06/20 16:11 39.5 C H 01/06/20 15:34 39.5 C H 93 H 37 H 130/71 93 01/06/20 14:41 95 H 26 H 146/89 H 93 01/06/20 14:25 40.2 C H 94 H 29 H 124/65 93 Code Status & VTE Plan VTE Prophylaxis Plan VTE Prophylaxis will be ordered: Yes PG Care Time/CCT Total # of Minutes Spent Total Time Spent with Patient: Total time spent is greater than 50% in coordination of care (as documented) at patient's floor/unit and/or counseling patient: Coding Level of Care Code 60573 OBS Care - Level 3 Diagnoses Hyperthermia R50.9 Coronary artery disease I25.10 Hypertension I10 Hypertension type: unspecified Atrial fibrillation I48.91 Alzheimer disease G30.9; F02.80 Wheezing R06.2 Cirrhosis K74.60 DVT, lower extremity I82.409 (1) Hypertension Hypertension type: unspecified Qualified Code(s): I10 - Essential (primary) hypertension
[2020-01-06] MEDS ORDERED: ALBUT/IPRATROP 3MG/0.5MG NEB 3 ML VIAL NEB STA (18:23)
[2020-01-06] MEDS ORDERED: ALBUT/IPRATROP 3MG/0.5MG NEB 3 ML VIAL NEB PRN (19:43)
[2020-01-06] MEDS ORDERED: MAGNESIUM HYDROXIDE SUSP 30 ML UDC PO PRN (19:43)
[2020-01-06] MEDS: SODIUM CHLORIDE 0.9% 1000ML 1,000 ML IV SCH (21:12)
[2020-01-06] MEDS: WARFARIN SOD 2.5 MG TAB PO SCH (22:32)
[2020-01-06] MEDS: MEMANTINE HCL 10 MG TAB PO SCH (22:34)
[2020-01-06] MEDS: PRAVASTATIN SOD 40 MG TAB PO SCH (22:34)
[2020-01-06 23:16] LABS: Appearance Urine Clear (Clear); Bacteria Urine Automated Negative (Negative); Bilirubin Urine Negative (Negative); Blood Urine Trace (Negative); Cast Urine Automated 0 /lpf (0-5); Color Urine Dark Yellow; Glucose Urine UA Negative (Negative); Ketones Urine Negative (Negative); Leukocyte Esterase Urine Negative (Negative); Nitrite Urine Negative (Negative); RBC Urine Automated 0-4 /hpf (0-4); Specific Gravity Urine 1.024 (1.000-1.030); Urobilinogen Urine Negative (Negative)
[2020-01-06 23:42] LABS: Protein Urine Trace (Negative); Sulfosalicylic Acid Urine Positive (Negative)
[2020-01-07] MEDS: ACETAMINOPHEN 325 MG TAB PO PRN ×2 (00:11→07:56)
[2020-01-07 05:47] LABS: Hematocrit (blood only) 45.3 % (42-52); Hemoglobin 15.4 g/dL (14.0-18.0); Mean Corpuscular Hemoglobin 32.6 pg (25-34); Mean Platelet Volume 9.9 fL (7.4-10.4); Platelet Count 114 K/uL (130-400); RDW Coefficient of Variation 14.8 % (11.5-14.5); RDW Standard Deviation 52.2 fL (36.4-46.3); Red Blood Count 4.72 M/uL (4.7-6.1)
[2020-01-07 05:56] LABS: INR 1.9 (0.9-1.1); Prothrombin Time 19.5 Seconds (9.0-12.0)
[2020-01-07 06:15] LABS: Albumin Level 3.3 gm/dl (3.4-5.0); Calcium 7.6 mg/dl (8.5-10.1); Creatinine Clr Calc Pharmacy 67.4 ml/min; Est GFR (African American) 66.5; Est GFR (Non-African American) 57.4; Potassium 4.1 mmol/L (3.5-5.1)
[2020-01-07 06:18] LABS: Albumin Globulin Ratio 0.8 (0.9-2); Bilirubin,Total 1.4 mg/dl (0.2-1); Globulin 4.3 gm/dl (2.5-4.0); Total Protein 7.6 gm/dl (6.4-8.2)
--- NOTE | 2020-01-07 08:16 | Electrocardiogram Report ---
Test Reason : Blood Pressure : / mmHG Vent. Rate : 081 BPM Atrial Rate : 081 BPM P-R Int : 236 ms QRS Dur : 092 ms QT Int : 368 ms P-R-T Axes : 083 -56 026 degrees QTc Int : 427 ms Sinus rhythm with sinus arrhythmia with 1st degree A-V block Left axis deviation Abnormal ECG When compared with ECG of 20-JUL-2019 21:18, Incomplete right bundle branch block is no longer Present Confirmed by Stu Alvarez ([id number]) on 01/07/2020 8:15:35 AM Referred By: [facility] Confirmed By:Stu Alvarez
[2020-01-07] MEDS: MEMANTINE HCL 10 MG TAB PO SCH ×2 (09:21→21:08)
[2020-01-07] MEDS: ARIPiprazole 5 MG TAB PO SCH (09:21)
[2020-01-07] MEDS: EZETIMIBE 10 MG TABLET PO SCH (09:21)
[2020-01-07] MEDS: DOCUSATE SODIUM 100 MG CAP PO SCH ×2 (09:21→09:26)
[2020-01-07] MEDS: CEROVITE ADV FORMULA TAB PO SCH (09:22)
[2020-01-07] MEDS: ASPIRIN 81 MG ECTAB PO SCH (09:22)
[2020-01-07] MEDS: ATENOLOL 25 MG TABLET PO SCH (09:22)
--- NOTE | 2020-01-07 09:24 | XRay Report ---
XR chest 1V portable HISTORY: ?developing pneumonia, fever COMPARISON: Chest 01/06/2020. FINDINGS: The heart remains mildly enlarged. Diffuse interstitial thickening has slightly progressed. Small bilateral pleural effusions have also slightly progressed. Bibasilar linear densities favor bah bsegmental atelectasis. No pneumothorax. IMPRESSION: Slight progression of the mild congestive change and small bilateral pleural effusions. ACT 112: Negative or not required by law. Electronically signed by: Damon Calhoun M.D. 01/07/2020 9:23 AM
[2020-01-07] MEDS: SODIUM CHLORIDE 0.9% 1000ML 1,000 ML IV SCH (09:43)
--- NOTE | 2020-01-07 11:57 | Hospitalist Progress Note ---
Date of Service January 07, 2020 Assessment & Plan (1) Pneumonia: clinical picture most c/w bilateral pneumonia. start rocephin/doxy IV. follow blood cx's. continue nebs q4h for reactive bronchitis/wheezing. add mucinex. cxr is being read as "CHF" but does not appear to have such on exam. COVID-19 PCR returned NEGATIVE this am. (2) Sepsis: 2nd b/l pneumonia. urine cx pending but u/a not terribly suspicious for UTI. COVID-19 PCR negative. follow blood cx's. obtaining RUQ u/s to ensure gall bladder is not cause of sepsis but unlikely. (3) Acute respiratory distress: 2nd to pneumonia with sepsis. improved respiratory rates overnight. still tachypneic but not hypoxic. cont supportive care. consider IV steroids for wheezing if any worsening. could consider [employer] respiratory panel but defer for now. (4) Wheezing: Reactive bronchitis in setting of pneumonia. I do not believe the wheezing is due to pulmonary edema. Cont nebs q4h. Defer on steroids for now. (5) Heat exposure: Back at [facility] he had extreme temperature exposure (120 degrees??). However, history and clinical picture not c/w heat stroke. (6) Coronary artery disease: No obvious ischemic symptoms cont asa cont BB cont statin (7) Cirrhosis: by report obtain RUQ u/s mild LFT abnormalities likely due to cirrhosis 2nd to MORROW? etoh? hepC? other? (8) Thrombocytopenia: 2nd to sepsis? 2nd to cirrhosis? nutritional deficiency? other? repeat CBC am for stability. (9) Hypertension: controlled cont outpatient meds (10) Atrial fibrillation: paroxysmal - patient in NSR today cont BB cont coumadin daily INR (11) Alzheimer disease: seems advanced cont namenda uncertain of his baseline (12) Hyperlipidemia: cont statin for now (13) Abnormal LFTs: likely due to cirrhosis, but will check RUQ u/s to ensure gall bladder is not cause of sepsis and is not the cause of the high LFTs. repeat LFTs in 48 hrs. (14) DVT prophylaxis: coumadin daily INR change observation status to full admission Admission and Anticipated Discharge Date Admission Date: January 06, 2020 Subjective patient unable to provide much meaningful history due to dementia, hearing impairment, and stuttering. he was able to tell me he had a discomfort "on the right" (side of abdomen) but otherwise had difficult time answering my questions. 2 guards at bedside. report that he intermittently coughs. nursing staff report he had diarrhea this am along with fever. he apparently ate fair at breakfast. Review of Systems Review of Systems: Unobtainable due to cognitive status Physical Exam Constitutional: + acute distress (tachypneic, mild retractions ), + ill edward earing, + obese and + altered mental status ENMT: external ear and nose normal, oropharynx normal Respiratory: + retractions, + cough and + tachypneic Auscultation: + crackles (b/l bases ) and + wheezes (b/l, scattered ) Cardiovascular: Rate/Rhythm: regular rate and regular rhythm Heart Sounds: normal S1 and normal S2; no murmur Vessels: posterior tibial pulses present and dorsalis pedis pulses present; no JVD Extremities: + edema (trace b/l ) Chest (Breasts): Additional Comments: tender right lower costal margin extending into RUQ with palpation Gastrointestinal (Abdomen): normal bowel sounds, soft, nontender, no h epatosplenomegaly Skin: stasis changes b/l shins - very mild Psychiatric: Orientation: alert and oriented to person; + not oriented to place and + not oriented to time Results & Data Results & [facility] ([facility]) Vital Signs (Past 12 Hours) Vital Signs Temp Pulse Resp BP BP Pulse Ox 01/07/20 09:20 37.5 C 01/07/20 08:38 78 18 92 01/07/20 07:44 39.0 C H 78 20 129/70 93 01/07/20 03:00 37.4 C 76 22 131/70 93 Laboratory Results Laboratory Results - last 24 hr 01/06/20 01/06/20 01/06/20 15:48 15:48 15:48 WBC 10.81 H RBC 4.86 Hgb 16.3 Hct 46.9 MCV 96.5 MCH 33.5 MCHC 34.8 RDW Std Deviation 51.6 H RDW Coeff of Tamara 14.6 H Plt Count 130 MPV 10.0 Immature Gran % (Auto) 0.2 Neut % (Auto) 86.6 Lymph % (Auto) 5.6 [place] % (Auto) 7.4 Eos % (Auto) 0.1 Baso % (Auto) 0.1 Neut # (Auto) 9.36 H Lymph # (Auto) 0.61 L [place] # (Auto) 0.80 H Eos # (Auto) 0.01 Baso # (Auto) 0.01 Immature Gran # (Auto) 0.02 PT 25.3 H INR 2.5 H APTT 38.3 H PTT Ratio 1.4 Sodium 136 Potassium 4.2 Chloride 105 Carbon Dioxide 25 Anion Gap 6.0 BUN 20 H Creatinine 1.28 Est Cr Clr Drug Dosing Not Reportable Est GFR ( Amer) 62.2 Est GFR (Non-Af Amer) 53.6 BUN/Creatinine Ratio 15.2 Glucose 123 H Lactate Calcium 8.4 L Magnesium 2.2 Total Bilirubin 1.4 H AST 23 ALT 32 Alkaline Phosphatase 86 Total Creatine Kinase 65 Troponin I < 0.015 Total Protein 8.4 H Albumin 3.8 Globulin 4.6 H Albumin/Globulin Ratio 0.8 L Procalcitonin Urine Color Urine Appearance Urine pH Ur Specific [place] Urine Protein Urine Glucose (UA) Urine Ketones Urine Blood Urine Nitrite Urine Bilirubin Urine Urobilinogen Ur Leukocyte Esterase Urine WBC (Auto) Urine RBC (Auto) U Hyaline Cast (Auto) U Epithel Cells (Auto) Urine Bacteria (Auto) Nasal Screen MRSA (PCR) COVID-19 PCR 01/06/20 01/06/20 01/06/20 15:48 15:48 18:01 WBC RBC Hgb Hct MCV MCH MCHC RDW Std Deviation RDW Coeff of Tamara Plt Count MPV Immature Gran % (Auto) Neut % (Auto) Lymph % (Auto) [place] % (Auto) Eos % (Auto) Baso % (Auto) Neut # (Auto) Lymph # (Auto) [place] # (Auto) Eos # (Auto) Baso # (Auto) Immature Gran # (Auto) PT INR APTT PTT Ratio Sodium Potassium Chloride Carbon Dioxide Anion Gap BUN Creatinine Est Cr Clr Drug Dosing Est GFR ( Amer) Est GFR (Non-Af Amer) BUN/Creatinine Ratio Glucose Lactate 2.5 H* 2.1 H* Calcium Magnesium Total Bilirubin AST ALT Alkaline Phosphatase Total Creatine Kinase Troponin I Total Protein Albumin Globulin Albumin/Globulin Ratio Procalcitonin 0.19 Urine Color Urine Appearance Urine pH Ur Specific [place] Urine Protein Urine Glucose (UA) Urine Ketones Urine Blood Urine Nitrite Urine Bilirubin Urine Urobilinogen Ur Leukocyte Esterase Urine WBC (Auto) Urine RBC (Auto) U Hyaline Cast (Auto) U Epithel Cells (Auto) Urine Bacteria (Auto) Nasal Screen MRSA (PCR) COVID-19 PCR 01/06/20 01/07/20 01/07/20 Unknown 00:10 05:05 WBC 7.70 RBC 4.72 Hgb 15.4 Hct 45.3 MCV 96.0 MCH 32.6 MCHC 34.0 RDW Std Deviation 52.2 H RDW Coeff of Tamara 14.8 H Plt Count 114 L MPV 9.9 Immature Gran % (Auto) Neut % (Auto) Lymph % (Auto) [place] % (Auto) Eos % (Auto) Baso % (Auto) Neut # (Auto) Lymph # (Auto) [place] # (Auto) Eos # (Auto) Baso # (Auto) Immature Gran # (Auto) PT INR APTT PTT Ratio Sodium Potassium Chloride Carbon Dioxide Anion Gap BUN Creatinine Est Cr Clr Drug Dosing Est GFR ( Amer) Est GFR (Non-Af Amer) BUN/Creatinine Ratio Glucose Lactate Calcium Magnesium Total Bilirubin AST ALT Alkaline Phosphatase Total Creatine Kinase Troponin I Total Protein Albumin Globulin Albumin/Globulin Ratio Procalcitonin Urine Color Dark Yellow Urine Appearance Clear Urine pH 8.0 H Ur Specific [place] 1.024 Urine Protein Trace H Urine Glucose (UA) Negative Urine Ketones Negative Urine Blood Trace H Urine Nitrite Negative Urine Bilirubin Negative Urine Urobilinogen Negative Ur Leukocyte Esterase Negative Urine WBC (Auto) 1-5 Urine RBC (Auto) 0-4 U Hyaline Cast (Auto) 0 U Epithel Cells (Auto) 10-20 H Urine Bacteria (Auto) Negative Nasal Screen MRSA (PCR) Negative COVID-19 PCR 01/07/20 01/07/20 01/07/20 05:05 05:05 09:45 WBC RBC Hgb Hct MCV MCH MCHC RDW Std Deviation RDW Coeff of Tamara Plt Count MPV Immature Gran % (Auto) Neut % (Auto) Lymph % (Auto) [place] % (Auto) Eos % (Auto) Baso % (Auto) Neut # (Auto) Lymph # (Auto) [place] # (Auto) Eos # (Auto) Baso # (Auto) Immature Gran # (Auto) PT 19.5 H INR 1.9 H APTT PTT Ratio Sodium 139 Potassium 4.1 Chloride 107 Carbon Dioxide 26 Anion Gap 6.0 BUN 18 Creatinine 1.21 Est Cr Clr Drug Dosing 67.4 Est GFR ( Amer) 66.5 Est GFR (Non-Af Amer) 57.4 BUN/Creatinine Ratio 15.0 Glucose 108 H Lactate Calcium 7.6 L Magnesium 2.0 Total Bilirubin 1.4 H AST 28 ALT 27 Alkaline Phosphatase 73 Total Creatine Kinase Troponin I Total Protein 7.6 Albumin 3.3 L Globulin 4.3 H Albumin/Globulin Ratio 0.8 L Procalcitonin Urine Color Urine Appearance Urine pH Ur Specific [place] Urine Protein Urine Glucose (UA) Urine Ketones Urine Blood Urine Nitrite Urine Bilirubin Urine Urobilinogen Ur Leukocyte Esterase Urine WBC (Auto) Urine RBC (Auto) U Hyaline Cast (Auto) U Epithel Cells (Auto) Urine Bacteria (Auto) Nasal Screen MRSA (PCR) COVID-19 PCR NEGATIVE blood cx's neg to date PG Care Time/CCT Total # of Minutes Spent Total Time Spent with Patient: Total time spent is greater than 50% in coordination of care (as documented) at patient's floor/unit and/or counseling patient: Coding Level of Care Code 86295 Subseq Hosp Care Lvl 3 Diagnoses Pneumonia J18.9 Pneumonia type: due to unspecified organism Laterality: bilateral Lung location: lower lobe of lung Sepsis A41.9 Sepsis type: sepsis due to unspecified organism Sepsis acute organ dysfunction status: unspecified Acute respiratory distress R06.03 Wheezing R06.2 Heat exposure T67.9XXA Encounter type: initial encounter Coronary artery disease I25.10 Coronary Disease-Associated Artery/Lesion type: [place] artery [place] vs. transplanted heart: [place] heart Associated angina: without angina Cirrhosis K74.69 Hepatic cirrhosis type: other cirrhosis Thrombocytopenia D69.6 Hypertension I10 Hypertension type: unspecified Atrial fibrillation I48.0 Atrial fibrillation type: paroxysmal Alzheimer disease G30.9; F02.80 Alzheimer's disease onset: unspecified onset Dementia behavioral disturbance: without behavioral disturbance Hyperlipidemia E78.2 Hyperlipidemia type: mixed hyperlipidemia Abnormal LFTs R94.5 DVT prophylaxis Z29.9 (1) Pneumonia Pneumonia type: due to unspecified organism Laterality: bilateral Lung location: lower lobe of lung Qualified Code(s): J18.9 - Pneumonia, unspecified organism (2) Sepsis Sepsis type: sepsis due to unspecified organism Sepsis acute organ dysfunction status: unspecified Qualified Code(s): A41.9 - Sepsis, unspecified organism (3) Heat exposure Encounter type: initial encounter Qualified Code(s): T67.9XXA - Effect of heat and light, unspecified, initial encounter (4) Coronary artery disease Coronary Disease-Associated Artery/Lesion type: [place] artery [place] vs. transplanted heart: [place] heart Associated angina: without angina Qualified Code(s): I25.10 - Atherosclerotic heart disease of [place] coronary artery without angina pectoris (5) Cirrhosis Hepatic cirrhosis type: other cirrhosis Qualified Code(s): K74.69 - Other cirrhosis of liver (6) Hypertension Hypertension type: unspecified Qualified Code(s): I10 - Essential (primary) hypertension (7) Atrial fibrillation Atrial fibrillation type: paroxysmal Qualified Code(s): I48.0 - Paroxysmal atrial fibrillation (8) Alzheimer disease Alzheimer's disease onset: unspecified onset Dementia behavioral disturbance: without behavioral disturbance Qualified Code(s): G30.9 - Alzheimer's disease, unspecified; F02.80 - Dementia in other diseases classified elsewhere without behavioral disturbance (9) Hyperlipidemia Hyperlipidemia type: mixed hyperlipidemia Qualified Code(s): E78.2 - Mixed hyperlipidemia
[2020-01-07] MEDS: cefTRIAXone SODIUM 2,000 MG in DEXTROSE 5% 50 ML IV SCH (12:18)
[2020-01-07] MEDS: LIDOCAINE 5% 1 PATCH TD SCH (12:30)
[2020-01-07] MEDS: DOXYCYCLINE HYCLATE 100 MG in DEXTROSE 5% 100 ML IV SCH ×2 (13:04→23:20)
[2020-01-07] MEDS: ALBUT/IPRATROP 3MG/0.5MG NEB 3 ML VIAL NEB SCH ×2 (17:27→18:58)
[2020-01-07] MEDS: guaiFENesin 600 MG TABCR PO SCH (21:07)
[2020-01-07] MEDS: WARFARIN SOD 2.5 MG TAB PO SCH (21:07)
[2020-01-07] MEDS: PRAVASTATIN SOD 40 MG TAB PO SCH (21:08)
[2020-01-08 06:32] LABS: Hematocrit (blood only) 40.7 % (42-52); Hemoglobin 14.1 g/dL (14.0-18.0); Mean Corpuscular Hemoglobin 32.5 pg (25-34); Mean Corpuscular Hgb Conc 34.6 g/dL (32-36); Mean Corpuscular Volume 93.8 fL (80-100); RDW Coefficient of Variation 14.5 % (11.5-14.5); RDW Standard Deviation 49.6 fL (36.4-46.3); Red Blood Count 4.34 M/uL (4.7-6.1); White Blood Count 6.74 K/uL (4.8-10.8)
[2020-01-08 07:02] LABS: Calcium 7.5 mg/dl (8.5-10.1); Creatinine Clr Calc Pharmacy 79.9 ml/min; Est GFR (African American) 81.8; Est GFR (Non-African American) 70.6; Potassium 3.5 mmol/L (3.5-5.1)
[2020-01-08] MEDS: ALBUT/IPRATROP 3MG/0.5MG NEB 3 ML VIAL NEB SCH ×4 (07:10→18:58)
[2020-01-08 07:18] LABS: Basophils # (auto) 0.01 K/uL (0-0.2); Basophils % (auto) 0.1 %; Eosinophils # (auto) 0.01 K/uL (0-0.5); Eosinophils % (auto) 0.1 %; Immature Granulocytes # (auto) 0.01 K/uL (0.00-0.02); Immature Granulocytes % (auto) 0.1 %; Lymphocytes # (auto) 1.02 K/uL (1.2-3.4); Lymphocytes % (auto) 15.1 %; Monocytes # (auto) 0.74 K/uL (0.11-0.59); Neutrophils # (auto) 4.95 K/uL (1.4-6.5); Neutrophils % (auto) 73.6 %; Platelet Count 90 K/uL (130-400); Platelet Estimate Decreased (Normal)
[2020-01-08] MEDS: ASPIRIN 81 MG ECTAB PO SCH (07:34)
[2020-01-08] MEDS: CEROVITE ADV FORMULA TAB PO SCH (07:34)
[2020-01-08] MEDS: ATENOLOL 25 MG TABLET PO SCH (07:35)
[2020-01-08] MEDS: ARIPiprazole 5 MG TAB PO SCH (07:35)
[2020-01-08] MEDS: DOCUSATE SODIUM 100 MG CAP PO SCH (07:35)
[2020-01-08] MEDS: guaiFENesin 600 MG TABCR PO SCH ×2 (07:35→20:42)
[2020-01-08] MEDS: EZETIMIBE 10 MG TABLET PO SCH (07:35)
[2020-01-08] MEDS: MEMANTINE HCL 10 MG TAB PO SCH ×2 (07:36→20:43)
[2020-01-08] MEDS: LIDOCAINE 5% 1 PATCH TD SCH (07:37)
--- NOTE | 2020-01-08 07:52 | Ultrasound Report ---
US gallbladder CLINICAL HISTORY: elevated bilirubin, RUQ pain, ?cirrhosis. COMPARISON STUDY: CT of the abdomen and pelvis April 09, 2011. FINDINGS: This exam is significantly compromised due to suboptimal penetration. Liver is echogenic. T here is coarsening of hepatic echotexture. Sensitivity for detection of hepatic lesions is diminished on this exam but none are identified. The pancreatic body is normal. The head and tail are obscured. No gallstones are identified. There may be trace sludge within the gallbladder. There is no gallblad ryan wall thickening. There is no right hydronephrosis. The common bile duct is obscured. IMPRESSION: 1. Echogenic liver which suggests fatty infiltration. Cirrhosis. 2. Exam significantly compromised by suboptimal penetration. Obscured pancreas and common bile duct. 3. No gallstones. No gallbladder wall thickening. ACT 112: Negative or not required by law. Electronically signed by: Pramod Peraza M.D. 01/08/2020 7:50 AM
[2020-01-08] MEDS: cefTRIAXone SODIUM 2,000 MG in DEXTROSE 5% 50 ML IV SCH (08:21)
[2020-01-08] MEDS: DOXYCYCLINE HYCLATE 100 MG in DEXTROSE 5% 100 ML IV SCH ×2 (12:20→23:35)
--- NOTE | 2020-01-08 16:03 | Hospitalist Progress Note ---
Date of Service January 08, 2020 Assessment & Plan (1) Pneumonia: Fevers felt to be due to pneumonia. Covid test negative. - Continue ceftriaxone and doxycyline - Breathing improved. No further fevers since 01/06. - Monitor breathing (2) Coronary artery disease: No chest pain on presentation. No EKG indication of ischemia. - Continue ASA, beta-ranjeet, statin, ezetimibe (3) Hypertension: BP is 125/70 in the ED. Today 120/70. - Continue beta-ranjeet (4) Atrial fibrillation: Paroxysmal. EKG on admission showed sinus rhythm with rate in the 80s. - Continue warfarin as below - Continue beta-ranjeet (5) Alzheimer disease: Long-standing. Per prior notes from 07/2019, he is only constantly AAOx1 (self) which is true today. Apparently sometimes not even really able to give review of systems, though today he was able to do so. Appears to be at baseline. - Continue home meds (6) Wheezing: No official COPD diagnosis from what I can see. Has mild wheezing on exam which appears chronic. No maintenance inhalers on med list. - DuoNebs PRN - Will start tiotropium which is first-line for COPD. (7) Cirrhosis: Per report, has a hx of heavy alcohol use. None presently. - Monitor (8) DVT, lower extremity: History of. Doppler in 07/2019 showed RLE superficial venous thrombus. - Continue warfarin - INR on admission was 2.5. Now 1.9. Admission and Anticipated Discharge Date Admission Date: January 07, 2020 Subjective Feels well today. Reports some mild shortness of breath. Reports no fevers/chills, chest pain, abdominal pain, nausea, or vomiting. Physical Exam Constitutional: WD/WN, vitals as above Eyes: EOM intact bilaterally; no conjunctival abnormality ENMT: external ear and nose normal, oropharynx normal Neck: trachea midline, no thyromegaly normal visual inspection Respiratory: normal respiratory effort, lungs clear to auscultation no respiratory distress Cardiovascular: RRR, no murmur, no edema Gastrointestinal (Abdomen): Inspection/Auscultation: abdomen normal to inspection; abdomen not distended Musculoskeletal: no cyanosis or clubbing, extremities motor strength 5/5 Skin: no rashes, warm and dry Neurologic: moves all extremities and awake Psychiatric: Orientation: alert, oriented to person and cooperative Results & Data Results & Data ([facility]) Vital Signs (Past 12 Hours) Vital Signs Temp Pulse Pulse Resp BP BP Pulse Ox 01/08/20 15:29 36.9 C 72 18 118/70 94 01/08/20 15:02 72 18 97 01/08/20 10:55 73 18 94 01/08/20 07:10 71 20 92 01/08/20 07:07 37.2 C 75 20 131/77 92 01/08/20 04:28 37.2 C 76 18 138/79 92 PG Care Time/CCT Total # of Minutes Spent Total Time Spent with Patient: Total time spent is greater than 50% in coordination of care (as documented) at patient's floor/unit and/or counseling patient: Coding Level of Care Code 71551 Subseq Hosp Care Lvl 2 Diagnoses Pneumonia J18.9 Pneumonia type: due to unspecified organism Laterality: bilateral Lung location: lower lobe of lung Coronary artery disease I25.10 Coronary Disease-Associated Artery/Lesion type: [place] artery [place] vs. transplanted heart: [place] heart Associated angina: without angina Hypertension I10 Hypertension type: unspecified Atrial fibrillation I48.0 Atrial fibrillation type: paroxysmal Alzheimer disease G30.9; F02.80 Alzheimer's disease onset: unspecified onset Dementia behavioral disturbance: without behavioral disturbance Wheezing R06.2 Cirrhosis K74.69 Hepatic cirrhosis type: other cirrhosis DVT, lower extremity I82.409 (1) Coronary artery disease Coronary Disease-Associated Artery/Lesion type: [place] artery [place] vs. transplanted heart: [place] heart Associated angina: without angina Qualified Code(s): I25.10 - Atherosclerotic heart disease of [place] coronary artery without angina pectoris (2) Hypertension Hypertension type: unspecified Qualified Code(s): I10 - Essential (primary) hypertension (3) Atrial fibrillation Atrial fibrillation type: paroxysmal Qualified Code(s): I48.0 - Paroxysmal atrial fibrillation (4) Alzheimer disease Alzheimer's disease onset: unspecified onset Dementia behavioral disturbance: without behavioral disturbance Qualified Code(s): G30.9 - Alzheimer's disease, unspecified; F02.80 - Dementia in other diseases classified elsewhere without behavioral disturbance (5) Cirrhosis Hepatic cirrhosis type: other cirrhosis Qualified Code(s): K74.69 - Other cirrhosis of liver (6) Pneumonia Pneumonia type: due to unspecified organism Laterality: bilateral Lung location: lower lobe of lung Qualified Code(s): J18.9 - Pneumonia, unspecified organism
[2020-01-08] MEDS: WARFARIN SOD 2.5 MG TAB PO SCH (20:40)
[2020-01-08] MEDS: PRAVASTATIN SOD 40 MG TAB PO SCH (20:40)
[2020-01-09 05:58] LABS: Hematocrit (blood only) 43.3 % (42-52); Hemoglobin 15.5 g/dL (14.0-18.0); Mean Corpuscular Hemoglobin 33.5 pg (25-34); Mean Corpuscular Hgb Conc 35.8 g/dL (32-36); Mean Corpuscular Volume 93.5 fL (80-100); Mean Platelet Volume 9.6 fL (7.4-10.4); Platelet Count 106 K/uL (130-400); RDW Coefficient of Variation 14.6 % (11.5-14.5); RDW Standard Deviation 49.6 fL (36.4-46.3); Red Blood Count 4.63 M/uL (4.7-6.1); White Blood Count 6.69 K/uL (4.8-10.8)
[2020-01-09 06:05] LABS: INR 2.6 (0.9-1.1); Prothrombin Time 26.1 Seconds (9.0-12.0)
[2020-01-09 06:24] LABS: BUN Creatinine Ratio 17.9 (10-20); Calcium 7.7 mg/dl (8.5-10.1); Creatinine Clr Calc Pharmacy 81.5 ml/min; Est GFR (African American) 83.8; Est GFR (Non-African American) 72.3; Magnesium 1.9 mg/dl (1.8-2.4); Potassium 3.4 mmol/L (3.5-5.1)
[2020-01-09] MEDS: ALBUT/IPRATROP 3MG/0.5MG NEB 3 ML VIAL NEB SCH ×3 (07:01→15:06)
[2020-01-09] MEDS ORDERED: UMECLIDINIUM BROMIDE 62.5MCG/BLISTER 7 PUFFS/INHALER INH SCH (09:00)
[2020-01-09] MEDS: cefTRIAXone SODIUM 2,000 MG in DEXTROSE 5% 50 ML IV SCH (09:18)
[2020-01-09] MEDS: LIDOCAINE 5% 1 PATCH TD SCH (09:19)
[2020-01-09] MEDS: guaiFENesin 600 MG TABCR PO SCH (09:20)
[2020-01-09] MEDS: ASPIRIN 81 MG ECTAB PO SCH (09:20)
[2020-01-09] MEDS: MEMANTINE HCL 10 MG TAB PO SCH (09:20)
[2020-01-09] MEDS: DOCUSATE SODIUM 100 MG CAP PO SCH (09:20)
[2020-01-09] MEDS: ARIPiprazole 5 MG TAB PO SCH (09:20)
[2020-01-09] MEDS: EZETIMIBE 10 MG TABLET PO SCH (09:21)
[2020-01-09] MEDS: ATENOLOL 25 MG TABLET PO SCH (09:21)
[2020-01-09] MEDS: CEROVITE ADV FORMULA TAB PO SCH (09:21)
[2020-01-09] MEDS: DOXYCYCLINE HYCLATE 100 MG in DEXTROSE 5% 100 ML IV SCH (11:23)
[2020-01-09] MEDS ORDERED: cephALEXin 500MG HOME PACK PO ONE (14:32)
--- NOTE | 2020-01-09 18:52 | Discharge Summary ---
Date of Service January 09, 2020 Admission HPI Per Admitting Provider 79yo M w/ hx of paroxysmal afib, HTN, and dementia who presents for hyperthermia. Reporting is all 2nd or 3rd hand as the patient has dementia and doesn't not know he is in the hospital or why he is here. Per report from the ED provider, the patient was found in his cell block with a temperature of 104. Someone reported the temperature in the room was upwards of 120 degrees. The guards with him during my interview report that the cell block where he is housed does not have a/c, and they are unsure if the inmates are provided fans. They agree that it is likely the temperature was >100 degrees in his cell, but find the 120 degree temperature to be surprisingly high. At present, the patient has no complaints. He denies any fevers/chills, shortness of breath, cough, nausea or vomiting, lightheadedness, or other complaints. Principal Diagnosis Pneumonia Discharge Exam Constitutional WD/WN, vitals as above Eyes EOM intact bilaterally; no conjunctival abnormality ENMT external ear and nose normal, oropharynx normal Neck trachea midline, no thyromegaly normal visual inspection Respiratory normal respiratory effort, lungs clear to auscultation no respiratory distress Cardiovascular RRR, no murmur, no edema Gastrointestinal (Abdomen) Inspection/Auscultation: abdomen normal to inspection; abdomen not distended Musculoskeletal no cyanosis or clubbing, extremities motor strength 5/5 Skin no rashes, warm and dry Neurologic moves all extremities and awake Psychiatric Orientation: alert, oriented to person and cooperative Discharge Data Allergies Allergy/AdvReac Type Severity Reaction Status Date / Time No Known Drug Allergies Allergy Unknown Unverified 01/06/20 15:43 OC SPRAY AdvReac Unknown Unknown Uncoded 07/20/19 23:37 Consultations 01/06/20 17:07 ED Decision to Admit Stat Ordered Studies 01/07/20 11:54 US gallbladder Routine Hospital Course (1) Pneumonia: Fevers felt to be due to pneumonia. Covid test negative. - Continue ceftriaxone and doxycyline - Breathing improved. No further fevers since 01/06. - Four more days of antibiotics: Keflex and doxycylcine (2) Coronary artery disease: No chest pain on presentation. No EKG indication of ischemia. - Continue ASA, beta-ranjeet, statin, ezetimibe (3) Hypertension: BP is 125/70 in the ED. Today 120/70. - Continue beta-ranjeet (4) Atrial fibrillation: Paroxysmal. EKG on admission showed sinus rhythm with rate in the 80s. - Continue warfarin as below - Continue beta-ranjeet (5) Alzheimer disease: Long-standing. Per prior notes from 07/2019, he is only constantly AAOx1 (self) which is true today. Apparently sometimes not even really able to give review of systems, though today he was able to do so. Appears to be at baseline. - Continue home meds (6) Wheezing: No official COPD diagnosis from what I can see. Has mild wheezing on exam which appears chronic. No maintenance inhalers on med list. - DuoNebs PRN - Will start tiotropium which is first-line for COPD. (7) Cirrhosis: Per report, has a hx of heavy alcohol use. None presently. - Monitor (8) DVT, lower extremity: History of. Doppler in 07/2019 showed RLE superficial venous thrombus. - Continue warfarin - INR on admission was 2.5. Now 1.9. Total Time Total Time Spent Total Time Spent (In Minutes): 35 Discharge Plan Discharge Items [facility]position[facility] Reason For Visit: HYPERTHERMIA Discharge Diagnosis: Pneumonia Activity: Resume your previous activity Non-emergency contact: Primary Care Provider Call non-emergency contact if: your symptoms worsen and your temperature is above 101 Follow-up/Referrals: Penny MAK [Primary Care Provider] - Diet: Heart Healthy Addtl Attending Provider Instructions: Mr. Muller was admitted with fever. His respiratory status was suboptimal as well, with fast respiration rate. He had fevers. Covid-19 swab was done and NEGATIVE. Chest x-ray indicated mild pneumonia. He was started on ceftriaxone and doxycycline, and his fevers resolved by 01/07/2020. His O2 status improved as well, and he was returned to room air. Would continue Keflex and doxycycline x 3 more days. (End date: 01/12/2020). Pending Studies at Discharge: Yes Studies:: Blood cultures -> Negative at 48 hours, but will watch for 5 days. Stand-Alone Forms: [facility] Skilled Items Patient informed of condition?: Yes Discharge Level of Care: Other Communicable Disease: No Discharge Prognosis: Improving Lines: None Urinary Catheter: No Medications and DC Order Prescriptions: New ipratropium-albuterol 0.5 mg-3 mg(2.5 mg base)/3 mL Solution For Nebulization 3 ml NEB QIDR PRN (Reason: Shortness Of Breath Or Wheezing) Qty: 1 RF: 0 guaifenesin [Mucinex] 600 mg Tablet Extended Release 12hr 1,200 mg PO Q12 Qty: 1 RF: 0 doxycycline hyclate 100 mg capsule 100 mg PO BID Qty: 8 RF: 0 cephalexin [Keflex] 500 mg capsule 500 mg PO Q6H Qty: 16 RF: 0 tiotropium bromide 2.5 mcg/actuation mist 2 puffs INH DAILY Qty: 4 RF: 0 Continued atenolol 25 mg Tablet 12.5 mg PO DAILY RF: 0 hydroxyzine pamoate 50 mg Capsule 50 mg PO HS RF: 0 warfarin 2.5 mg Tablet 2.5 mg PO HS RF: 0 aspirin [Aspirin Low Dose] 81 mg Tablet,Delayed Release (Dr/Ec) 81 mg PO DAILY RF: 0 pravastatin 80 mg Tablet 80 mg PO HS RF: 0 magnesium hydroxide [Milk of Magnesia] 400 mg/5 mL Suspension 30 ml PO DAILY PRN (Reason: Constipation) RF: 0 nitroglycerin 0.4 mg Tablet, Sublingual 0.4 mg sublingual UD PRN (Reason: Chest Pain) RF: 0 docusate sodium 100 mg Capsule 100 mg PO DAILY RF: 0 hydroxyzine pamoate 25 mg Capsule 25 mg PO DAILY RF: 0 multivitamin with iron Tablet 1 tab PO DAILY RF: 0 ezetimibe 10 mg Tablet 10 mg PO DAILY RF: 0 aripiprazole 5 mg Tablet 5 mg PO DAILY RF: 0 memantine 10 mg Tablet 10 mg PO BID RF: 0 ramelteon 8 mg Tablet 8 mg PO HS RF: 0 Discharge Orders: Discharge Order (Routine); Ordered 01/09/20 Ordered By: Aaron Marsh Admission Data Admit Date/Time: 01/07/20 11:55 Attending Provider: Aaron Marsh Admit Provider: Aaron Marsh Primary Care Provider: Penny MAK Other Providers: Aaron Marsh Other Interventions: Discharge Summary Assessment (RN) Last Done: 01/09/20 10:24 DC Date/Time DO NOT enter until pt leaves facility: 01/09/20 15:12 Coding Level of Care Code D/C Day Management >30 mins Diagnoses Pneumonia J18.9 Pneumonia type: due to unspecified organism Laterality: bilateral Lung location: lower lobe of lung Coronary artery disease I25.10 Coronary Disease-Associated Artery/Lesion type: [place] artery [place] vs. transplanted heart: [place] heart Associated angina: without angina Hypertension I10 Hypertension type: unspecified Atrial fibrillation I48.0 Atrial fibrillation type: paroxysmal Alzheimer disease G30.9; F02.80 Alzheimer's disease onset: unspecified onset Dementia behavioral disturbance: without behavioral disturbance Wheezing R06.2 Cirrhosis K74.69 Hepatic cirrhosis type: other cirrhosis DVT, lower extremity I82.409
--- NOTE | 2020-01-16 11:53 | Coding Query ---
To promote full compliance with coding requirements relating to patient care, provider participation is requested in all cases of radiology special procedure tech uncertainty. Please assist us with the question(s) below: Coding Question(s): The diagnosis(es) below was documented in the 01/07/20 Progress Note, then subsequently fell off all further documentation. Please indicate if it is still a possible diagnosis or ruled out. Physician's Response(s): SEPSIS ( x ) Diagnosed and POA ( ) Diagnosed and not POA ( ) Ruled out ( ) Other (please specify) HEAT EXPOSURE ( ) Diagnosed and POA ( ) Diagnosed and not POA ( x ) Ruled out ( ) Other (please specify) MTDD
== END 2020-01-09 15:12 | DRG 871 ==
LOC: ED 14:24 → 3W 14:24 → SUATTDRO 17:23 → 3W 18:31 → SUATTDRO 01-07 11:55